=== PATIENT | male | born 1940 | race Caucasian/White ===

== ENCOUNTER 2018-12-25 18:18 | Inpatient (IN) ==
[2018-12-25] MEDS ORDERED: Nitroglycerin 0.4 MG TAB.SUBL SL PRN (18:45)
[2018-12-25] MEDS ORDERED: Aspirin 81 MG TAB.CHEW PO ONE (18:45)
--- NOTE | 2018-12-25 18:45 | Emergency Department Note ---
Disposition Clinical Impression: Facial paresthesia, Arm paresthesia, left Chest pain Qualifiers: Chest pain type: unspecified Qualified Code(s): R07.9 - Chest pain, unspecified Disposition: Admitted As Inpatient Condition: Fair Time of Disposition: 22:30 General Adult HPI - General Chief complaint: ED Neuro Symptoms/Deficit Stated complaint: numbness Time Seen by Provider: 12/25/18 18:29 Source: patient, EMS Mode of arrival: private vehicle Limitations: altered mental status Nursing Notes Reviewed: Yes Vital Signs Reviewed: Yes - History of Present Illness HPI Narrative: Pt was seen at the [facility] today for concerns of left-sided numbness in addition to his existing right-sided facial numbness. Patient had a chest x-ray and a head CT at the [facility], was sent with a CD which will be uploaded into our system. Was also sent with a folder full of information containing the radiological reads. Patient is also complaining of some left-sided chest pain that he says has been there for the last couple of days. He says it started yesterday morning he was hoping it would go away but then it did not go away so he decided to get looked at today. Patient states that it is like a pressure and it is approximately 8 out of 10 in severity. Patient has not taken any of his nitroglycerin in order to help relieve his pain. Patient is only alert and oriented to self, does not know the date, the season, the president, where he is. Patient states that he feels like his numbness is like the last time he had a stroke and was concerned that he may be having a stroke. Pt was recently a patient in this facility and had cardiac workup including nuclear and non-nuclear stress tests, echocardiogram in October, and there was no significant findings. Pain Scale: 5 - Related Data Home Medications Medication Instructions Recorded Confirmed RX: Allopurinol [Zyloprim 100 MG] 100 mg PO DAILY 11/22/18 12/25/18 RX: Aspirin [Lo-Dose Aspirin EC] 81 mg PO DAILY 11/22/18 12/25/18 RX: Baclofen [Lioresal] 10 mg PO BID 11/22/18 12/25/18 RX: Benzonatate [Tessalon] 100 mg PO Q6H PRN 11/22/18 12/25/18 RX: Budesonide/Formoterol 160/4.5 2 puff IH Q12H 11/22/18 12/25/18 [Symbicort 160/4.5] RX: Carbidopa/Levodopa 1 tab PO TID 11/22/18 12/25/18 [Carbidopa-Levodopa 25-100 Tab] RX: Clopidogrel [Plavix] 75 mg PO DAILY 11/22/18 12/25/18 RX: Isosorbide MONOnitrate 30 mg PO DAILY 11/22/18 12/25/18 [Isosorbide Mononitrate ER] RX: Lactulose 10 gm PO BID 11/22/18 12/25/18 RX: Levalbuterol Neb [Xopenex Neb] 0.63 mg IH Q6H PRN 11/22/18 12/25/18 RX: Levalbuterol Tartrate 2 puff IH Q4H PRN 11/22/18 12/25/18 [Levalbuterol Tartrate Hfa] RX: Nitroglycerin [Nitrostat] 0.4 mg SL AD PRN MDD 3 DOSES X5MIN 11/22/18 12/25/18 CALL 911 RX: Pantoprazole Sodium [Protonix] 40 mg PO DAILY 11/22/18 12/25/18 RX: Polyethylene Glycol 3350 17 gm PO BID PRN 11/22/18 12/25/18 [MiraLAX] RX: Pravastatin Sodium [Pravachol] 40 mg PO HS 11/22/18 12/25/18 RX: Primidone [Mysoline] 100 mg PO HS 11/22/18 12/25/18 RX: Propranolol [Inderal] 10 mg PO TID 11/22/18 12/25/18 RX: Sulfamethoxazole/Trimeth DS 1 each PO BID 11/22/18 12/25/18 [Bactrim Ds] RX: Tamsulosin HCl [Flomax] 0.8 mg PO QPM 11/22/18 12/25/18 Guaifenesin [Tussin Honey] PO TID 12/25/18 Pregabalin [Lyrica] 225 mg PO BID 12/25/18 12/25/18 RX: Ipratropium Neb [Atrovent Neb] 2.5 ml IH QID 12/25/18 12/25/18 RX: Theophylline Anhydrous 150 mg PO BID 12/25/18 12/25/18 [Theodur] Allergies Allergy/AdvReac Type Severity Reaction Status Date / Time codeine Allergy Drowsy Verified 03/28/16 11:58 gabapentin Allergy See Verified 12/25/18 18:41 Comments meperidine [From Demerol] Allergy See Verified 11/22/18 14:17 Comments lovastatin AdvReac See Verified 11/22/18 14:17 Comments pramipexole AdvReac See Verified 12/25/18 18:41 Comments simvastatin AdvReac See Verified 11/22/18 14:17 Comments venlafaxine AdvReac See Verified 12/25/18 18:41 Comments Limitations: ROS unobtainable due to patients medical condition Past Medical History - Past Medical History Medical history: Reports: coronary artery disease, CVA, hyperlipidemia, hypertension - Social History Smoking Status: Former smoker Smokeless Tobacco Status: No Alcohol use: Reports: none Drug use: Reports: none Physical Exam General: A&O x 1. No acute distress. Well developed, well nourished. Head: atraumatic, normocephalic. ENT: No conjunctival injection, no scleral icterus. PERRLA. EOMI. Oropharynx non- erythematous. mucous membranes moist. Neuro: Left sided facial numbness worse than right. CN II-XII grossly intact. Bilateral upper extremities strength 5/5, left ower extremity strength 4/5, right lower extremity strength 3/5. Pulm: Lungs CTAB A/P. No wheezes, rales, ronchi. Cardio: RRR no m/r/g. Chest slightly tender to palpation, but does not completely reproduce his symptoms. Abd: Soft, non-distended. Normoactive bowel sounds. Non-tender to palpation. No guarding. Non rigid. Extremities: Radial pulses 2+ laura, laura LE mild edema. Skin: warm, dry, intact. No rashes. Psych: Appropriate mood and affect. Answers questions appropriately. Cooperative with exam. - General Limitations: no limitations General appearance: alert, in no apparent distress Course Course Narrative: Pt has come with CD containing CXR and Head CT which will be loaded into the system. Will order troponin to rule out ACS, but suspect he will need to be admitted for further neurologic workup. Vital Signs Temperature 98.5 F 12/25/18 18:28 Pulse Rate 71 12/25/18 18:28 Respiratory Rate 16 04/03/19 18:28 Blood Pressure 153/84 12/25/18 18:28 O2 Sat by Pulse Oximetry 100 12/25/18 18:28 Temperature 98.5 F 12/25/18 18:28 Pulse Rate 71 12/25/18 18:28 Respiratory Rate 16 12/25/18 18:28 Blood Pressure 153/84 12/25/18 18:28 O2 Sat by Pulse Oximetry 100 12/25/18 18:28 Oxygen Delivery Oxygen Delivery Nasal Cannula Medical Decision Making - MDM Narrative Medical decision making narrative: Pt continues to have neurologic symptoms with no [id number] CT evidence of hemorrhage. Will need further neurologic workup. Spoke with Dr. Betancur, hospitalist, who agrees to accept the patient. Pt was given an opportunity to ask questions at bedside and did not have any questions. Pt verbalized understanding and agreement with admission. Pt remained stable while in the department. - Medical Records Medical records reviewed: Yes I reviewed the patient's medical records. - Lab Data Lab results reviewed: Yes I reviewed the patient's lab results. Result diagrams: 12/26/18 06:01 12/26/18 06:01 Lab Results 12/25/18 12/25/18 12/25/18 Range/Units 19:33 19:33 19:33 WBC 7.4 (4.3-11.1) K/mcL RBC 3.88 L (4.19-5.50) M/mcL Hgb 11.4 L (12.9-16.9) g/dL Hct 35.6 L (37.5-50.1) % MCV 91.8 (83.0-100.0) fL MCH 29.4 (28.0-33.3) pg MCHC 32.0 (31.6-35.5) g/dL RDW 14.0 (11.5-14.5) % Plt Count 167 (140-400) K/mcL MPV 10.9 (9.4-12.4) fL Immature Gran % 0.3 (0-4) % Seg Neutrophils % 56.0 % Lymphocytes % 31.8 % Monocytes % 9.3 % Eosinophils % 1.9 % Basophils % 0.7 % Neutrophils # 4.1 (1.6-8.9) K/mcL Lymphocytes # 2.4 (0.6-4.6) K/mcL Monocytes # 0.7 (0.0-1.3) K/mcL Eosinophils # 0.1 (0.0-0.6) K/mcL Basophils # 0.1 (0.0-0.2) K/mcL PT 11.6 (9.4-12.1) Seconds INR 1.0 APTT 30.4 (26.0-36.0) Seconds Sodium 140 (136-145) mEq/L Potassium 4.0 (3.5-5.1) mEq/L Chloride 105 (98-107) mEq/L Carbon Dioxide 29 (23-29) mEq/L BUN 23 (8-23) mg/dL Creatinine 0.96 (0.70-1.30) mg/dL Est GFR ( Amer) > 60 (> 60) Est GFR (Non-Af Amer) > 60 (> 60) BUN/Creatinine Ratio 24 (6-26) Glucose 85 (70-105) mg/dL Calculated Osmolality 293 (280-300) Calcium 9.0 (8.6-10.3) mg/dL Troponin I < 0.03 (< 0.04) ng/mL - Radiology Data Radiology results reviewed: Yes I reviewed the patient's radiology results. Radiologic results contained in [facility] - EKG Data EKG #1 EKG attestation: Yes I reviewed and interpreted this EKG. EKG results narrative: HR 71, rhythm sinus, axis normal. MD 158, QRS 95, QTc 441. No ST segment elevation or depression. Previous EKG shows sinus arrhythmia. Our initial EKG showed atrial flutter, but techs were able to hold patient's arms and legs and obtain an EKG which did not demonstrate flutter. Attestation Statement - Attestation Attestation: I examined this patient and my medical decision-making was reviewed with the Resident Physician. I agree with the documented findings, disposition and treatment plan as described except to the extent set forth below.
[2018-12-25 19:59] LABS: Prothrombin Time 11.6 Seconds (9.4-12.1)
[2018-12-25 20:01] LABS: Activated Partial Thrombo Time 30.4 Seconds (26.0-36.0)
[2018-12-25 20:09] LABS: BUN/Creatinine Ratio 24 (6-26); Blood Urea Nitrogen 23 mg/dL (8-23); Carbon Dioxide 29 mEq/L (23-29); Chloride 105 mEq/L (98-107); Glucose 85 mg/dL (70-105); Osmolality,Calculated 293 (280-300); Sodium 140 mEq/L (136-145); eGFR For Non-African Americans > 60 (> 60)
[2018-12-25 20:10] LABS: Troponin I < 0.03 ng/mL (< 0.04)
[2018-12-25 20:26] LABS: Basophils # 0.1 K/mcL (0.0-0.2); Basophils % 0.7 %; Eosinophils # 0.1 K/mcL (0.0-0.6); Eosinophils % 1.9 %; Hematocrit 35.6 % (37.5-50.1); Hemoglobin 11.4 g/dL (12.9-16.9); Immature Granulocytes % 0.3 % (0-4); Lymphocytes # 2.4 K/mcL (0.6-4.6); Lymphocytes % 31.8 %; Mean Corpuscular Hemoglobin 29.4 pg (28.0-33.3); Mean Corpuscular Volume 91.8 fL (83.0-100.0); Mean Platelet Volume 10.9 fL (9.4-12.4); Monocytes # 0.7 K/mcL (0.0-1.3); Monocytes % 9.3 %; Neutrophils # 4.1 K/mcL (1.6-8.9); Platelet Count 167 K/mcL (140-400); Red Blood Count 3.88 M/mcL (4.19-5.50)
--- NOTE | 2018-12-25 21:16 | Emergency Department Note ---
Disposition Clinical Impression: Chest pain, Facial paresthesia, Arm paresthesia, left Disposition: Still a Patient Condition: Fair Forms: ED Satisfaction Letter General Adult HPI - General Chief complaint: ED Neuro Symptoms/Deficit Stated complaint: numbness Time Seen by Provider: 12/25/18 18:29 Source: patient, EMS Mode of arrival: private vehicle Limitations: no limitations - History of Present Illness Pain Scale: 5 - Related Data Home Medications Medication Instructions Recorded Confirmed Allopurinol [Zyloprim 100 MG] 100 mg PO DAILY 11/22/18 11/22/18 Aspirin [Lo-Dose Aspirin EC] 81 mg PO DAILY 11/22/18 11/22/18 Baclofen [Lioresal] 10 mg PO BID 11/22/18 11/22/18 Benzonatate [Tessalon] 100 mg PO Q6H PRN 11/22/18 11/22/18 Budesonide/Formoterol 160/4.5 2 puff IH Q12H 11/22/18 11/22/18 [Symbicort 160/4.5] Carbidopa/Levodopa 1 tab PO TID 11/22/18 11/22/18 [Carbidopa-Levodopa 25-100 Tab] Clopidogrel [Plavix] 75 mg PO DAILY 11/22/18 11/22/18 Isosorbide MONOnitrate [Isosorbide 45 mg PO DAILY 11/22/18 11/22/18 Mononitrate ER] Lactulose 10 gm PO BID 11/22/18 11/22/18 Levalbuterol Neb [Xopenex Neb] 0.63 mg IH Q6H PRN 11/22/18 11/22/18 Levalbuterol Tartrate 2 puff IH Q4H PRN 11/22/18 11/22/18 [Levalbuterol Tartrate Hfa] Nitroglycerin [Nitrostat] 0.4 mg SL AD PRN MDD 3 DOSES X5MIN 11/22/18 11/22/18 CALL 911 Pantoprazole Sodium [Protonix] 40 mg PO DAILY 11/22/18 11/22/18 Polyethylene Glycol 3350 [MiraLAX] 17 gm PO BID PRN 11/22/18 11/22/18 Pravastatin Sodium [Pravachol] 40 mg PO HS 11/22/18 11/22/18 Pregabalin [Lyrica] 150 mg PO BID 11/22/18 11/22/18 Primidone [Mysoline] 100 mg PO HS 11/22/18 11/22/18 Propranolol [Inderal] 10 mg PO TID 11/22/18 11/22/18 Sulfamethoxazole/Trimeth DS 1 each PO BID 11/22/18 11/22/18 [Bactrim Ds] Tamsulosin HCl [Flomax] 0.8 mg PO QPM 11/22/18 11/22/18 Allergies Allergy/AdvReac Type Severity Reaction Status Date / Time codeine Allergy Drowsy Verified 03/28/16 11:58 gabapentin Allergy See Verified 12/25/18 18:41 Comments meperidine [From Demerol] Allergy See Verified 11/22/18 14:17 Comments lovastatin AdvReac See Verified 11/22/18 14:17 Comments pramipexole AdvReac See Verified 12/25/18 18:41 Comments simvastatin AdvReac See Verified 11/22/18 14:17 Comments venlafaxine AdvReac See Verified 12/25/18 18:41 Comments Past Medical History - Past Medical History Medical history: Reports: coronary artery disease, CVA, hyperlipidemia, hypertension - Social History Smoking Status: Former smoker Smokeless Tobacco Status: No Alcohol use: Reports: none Drug use: Reports: none Physical Exam - General Limitations: no limitations General appearance: alert, in no apparent distress Course Vital Signs Temperature 98.5 F 12/25/18 18:28 Pulse Rate 71 12/25/18 18:28 Respiratory Rate 16 12/25/18 18:28 Blood Pressure 153/84 12/25/18 18:28 O2 Sat by Pulse Oximetry 100 12/25/18 18:28 Temperature 98.5 F 12/25/18 18:28 Pulse Rate 71 12/25/18 18:28 Respiratory Rate 16 12/25/18 18:28 Blood Pressure 153/84 12/25/18 18:28 O2 Sat by Pulse Oximetry 100 12/25/18 18:28 Oxygen Delivery Oxygen Delivery Nasal Cannula Medical Decision Making - Lab Data Result diagrams: 12/25/18 19:33 12/25/18 19:33 Lab Results 12/25/18 12/25/18 12/25/18 Range/Units 19:33 19:33 19:33 WBC 7.4 (4.3-11.1) K/mcL RBC 3.88 L (4.19-5.50) M/mcL Hgb 11.4 L (12.9-16.9) g/dL Hct 35.6 L (37.5-50.1) % MCV 91.8 (83.0-100.0) fL MCH 29.4 (28.0-33.3) pg MCHC 32.0 (31.6-35.5) g/dL RDW 14.0 (11.5-14.5) % Plt Count 167 (140-400) K/mcL MPV 10.9 (9.4-12.4) fL Immature Gran % 0.3 (0-4) % Seg Neutrophils % 56.0 % Lymphocytes % 31.8 % Monocytes % 9.3 % Eosinophils % 1.9 % Basophils % 0.7 % Neutrophils # 4.1 (1.6-8.9) K/mcL Lymphocytes # 2.4 (0.6-4.6) K/mcL Monocytes # 0.7 (0.0-1.3) K/mcL Eosinophils # 0.1 (0.0-0.6) K/mcL Basophils # 0.1 (0.0-0.2) K/mcL PT 11.6 (9.4-12.1) Seconds INR 1.0 APTT 30.4 (26.0-36.0) Seconds Sodium 140 (136-145) mEq/L Potassium 4.0 (3.5-5.1) mEq/L Chloride 105 (98-107) mEq/L Carbon Dioxide 29 (23-29) mEq/L BUN 23 (8-23) mg/dL Creatinine 0.96 (0.70-1.30) mg/dL Est GFR ( Amer) > 60 (> 60) Est GFR (Non-Af Amer) > 60 (> 60) BUN/Creatinine Ratio 24 (6-26) Glucose 85 (70-105) mg/dL Calculated Osmolality 293 (280-300) Calcium 9.0 (8.6-10.3) mg/dL Troponin I < 0.03 (< 0.04) ng/mL Attestation Statement - Attestation Attestation: Patient presents to emergency department with chief complaint of left-sided facial numbness, as well as some left-sided chest pain, he states the chest pain reminds always had problems with his heart, he states the left-sided facial numbness is a concern because he had similar symptoms with a prior stroke. [facility] and a chest x-ray and EKG and sent him to the ER here. Patient states he had a little bit of left arm paresthesia but no actual weakness. On physical exam is in no acute distress, cranial nerves appear grossly intact no obvious facial droop or obvious focal neurologic findings. Basic laboratory studies were within acceptable limits. [facility] CT [facility] from [facility], was reviewed, which showed no acute findings as interpreted by radiology. [facility] report also reviewed showed no acute findings images were uploaded from the CDs provided into our system. Initial EKG appeared to potentially be atrial flutter but rate controlled, however the patient has Parkinson's disease, and has a tremor, when we are able to hold his arms still a repeat EKG reveals no evidence of atrial flutter, and evidence for normal sinus rhythm, no other significant ischemia. Patient did have a stress test a month ago which showed no evidence of abnormality, at this facility, he however presents with both chest discomfort, as well as some symptoms concerning for potential TIA with a history of prior [facility], no recent stroke workup, he will be admitted to the hospital for further evaluation and management.
[2018-12-25] MEDS ORDERED: Naloxone 0.4 MG/ML INJ IVP PRN (23:57)
[2018-12-26] MEDS ORDERED: Levalbuterol Neb 0.63 MG/3 ML IH PRN (00:04)
--- NOTE | 2018-12-26 01:21 | Internal Med History&Physical ---
Date of Encounter: 12/25/18 Time of Encounter: 22:50 Internal Medicine - H&P: HPI Chief complaint: left sided weakness Admitted From: Emergency Dept Plans for Post Hospital Care: Home History of present illness: Mr. Navarrete is a 78 year old male who presents to the ER in transfer from the [facility] urgent care. He presented there earlier with complaints of left-sided weakness and paresthesias, which started over 24 hours prior to presentation. He was hopeful that his symptoms would go away. However, since they persisted beyond 24 hours, he went to the urgent care at the [facility] for further workup and care. He had routine labs and imaging performed there and then he was sent to the ER to [place] for further workup and care. CT scan was not repeated here but was reportedly negative at the [facility]. Routine labs were checked and the patient was admitted to hospitalist service for further workup and care. Upon my assessment of the patient, patient is resting in bed comfortably. He denies any complaints at this time, but he does confirm residual left-sided weakness, which is new. 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 He confirms history of old stroke but with no residual deficits. The left side weakness is new and started roughly 1 1/2 days ago. He suffers from Parkinson's disease, but he states he is able to ambulate with minimal difficulty using a cane and/or walker. He denies any dysphasia, dysarthria, numbness, or paralysis. He does complain of left-sided weakness of his arm and leg with some paresthesias. Symptoms have improved somewhat since onset, but they persist. Past Med Surg Social Fam HX - Past Medical History Attestation: Yes The following information was validated with the patient. Source: patient, old records reviewed Medical history: coronary artery disease, CVA, hyperlipidemia, hypertension Psychiatric history: no psych history - Past Surgical History Surgical History: angioplasty/stent, orthopedic, other Additional surgical history: knee, kidney, heart stent x3 - Social History Smoking Status: Former smoker Smokeless Tobacco Status: No Alcohol use: none Drug use: none Current living situation: Home, With Family Activity Level: Independent ambulation, Uses cane/walker Recent Out of Country Travel Within the Last 8 Weeks: No - Family History Father Hx Family Cardiac Disorders: Yes Mother Hx Family Cancer: Yes Internal Medicine - H&P: Meds Allopurinol [Zyloprim 100 MG] 100 mg PO DAILY 11/22/18 [History] Aspirin [Lo-Dose Aspirin EC] 81 mg PO DAILY 11/22/18 [History] Baclofen [Lioresal] 10 mg PO BID 11/22/18 [History] Benzonatate [Tessalon] 100 mg PO Q6H PRN 11/22/18 [History] Budesonide/Formoterol 160/4.5 [Symbicort 160/4.5] 2 puff IH Q12H 11/22/18 [History] Carbidopa/Levodopa [Carbidopa-Levodopa 25-100 Tab] 1 tab PO TID 11/22/18 [History] Clopidogrel [Plavix] 75 mg PO DAILY 11/22/18 [History] Isosorbide MONOnitrate [Isosorbide Mononitrate ER] 30 mg PO DAILY 11/22/18 [History] Lactulose 10 gm PO BID 11/22/18 [History] Levalbuterol Neb [Xopenex Neb] 0.63 mg IH Q6H PRN 11/22/18 [History] Levalbuterol Tartrate [Levalbuterol Tartrate Hfa] 2 puff IH Q4H PRN 11/22/18 [History] Nitroglycerin [Nitrostat] 0.4 mg SL AD PRN MDD 3 DOSES X5MIN CALL 911 11/22/18 [History] Pantoprazole Sodium [Protonix] 40 mg PO DAILY 11/22/18 [History] Polyethylene Glycol 3350 [MiraLAX] 17 gm PO BID PRN 11/22/18 [History] Pravastatin Sodium [Pravachol] 40 mg PO HS 11/22/18 [History] Primidone [Mysoline] 100 mg PO HS 11/22/18 [History] Propranolol [Inderal] 10 mg PO TID 11/22/18 [History] Sulfamethoxazole/Trimeth DS [Bactrim Ds] 1 each PO BID 11/22/18 [History] Tamsulosin HCl [Flomax] 0.8 mg PO QPM 11/22/18 [History] Guaifenesin [Tussin Honey] PO TID 12/25/18 [History] Ipratropium Neb [Atrovent Neb] 2.5 ml IH QID 12/25/18 [History] Pregabalin [Lyrica] 225 mg PO BID 12/25/18 [History] Theophylline Anhydrous [Theodur] 150 mg PO BID 12/25/18 [History] Allergy/AdvReac Type Severity Reaction Status Date / Time codeine Allergy Drowsy Verified 03/28/16 11:58 gabapentin Allergy See Verified 12/25/18 18:41 Comments meperidine [From Demerol] Allergy See Verified 11/22/18 14:17 Comments lovastatin AdvReac See Verified 11/22/18 14:17 Comments pramipexole AdvReac See Verified 12/25/18 18:41 Comments simvastatin AdvReac See Verified 11/22/18 14:17 Comments venlafaxine AdvReac See Verified 12/25/18 18:41 Comments - Constitutional Constitutional: no chills, no fever(s), no night sweats - EENT Eyes: no blurry vision, no change in vision Ears: no ear pain, no tinnitus Nose, mouth and throat: no nasal congestion, no sinus pressure, no sore throat - Cardiovascular Cardiovascular ROS IM: no chest pain, no dyspnea, no dyspnea on exertion, no orthopnea, no syncope - Respiratory Respiratory: no cough, no hemoptysis, no chest congestion - Gastrointestinal Gastrointestinal: no abdominal pain, no diarrhea, no hematemesis, no hematochezia, no melena, no nausea, no vomiting - Genitourinary Genitourinary ROS male: no difficulty urinating, no dysuria, no hematuria - Musculoskeletal Musculoskeletal ROS IM: no arthralgias, no back pain - Integumentary Integumentary IM: no rash, no jaundice - Neurological Neurological ROS: focal weakness (left side), paresthesias, no disequilibrium, no dizziness, no frequent falls, no headache(s), no numbness - Psychiatric Psychiatric: no anxiety, no depression - Endocrine Endocrine IM: no cold intolerance, no heat intolerance, no polydipsia, no polyuria - Allergic/Immunologic Allergic/Immunologic: no wheezing, no GI upset with certain foods - Constitutional Vitals: Temp Pulse Resp BP Pulse Ox 98 F 69 16 168/91 99 12/26/18 00:53 12/26/18 00:53 12/26/18 00:53 12/26/18 00:53 12/26/18 00:53 General appearance: Present: cooperative, A&O X 3, pleasant, no acute distress, answers questions appropriately Exam: see below - Head Head exam: Present: atraumatic, normal inspection - Eye Eye exam: Present: EOMI, PERRL. Absent: scleral icterus Pupils: Present: normal accommodation - ENT ENT exam: Present: mucous membranes dry, normal exam, normal oropharynx - Neck Neck exam general surgery: Present: full ROM, supple, trachea midline. Absent: tenderness, nuchal rigidity, thyromegaly - Respiratory Respiratory exam: Present: CTAB. Absent: chest wall tenderness, rales, respiratory distress, rhonchi, wheezes - Cardiovascular Cardiovascular exam: Present: RRR, +S1, +S2. Absent: diastolic murmur, systolic murmur - GI/Abdominal GI/Abdominal exam: Present: normal bowel sounds, soft. Absent: guarding, hepatomegaly, mass, rebound, splenomegaly, tenderness - Extremities Exam Extremities exam: Present: full ROM, normal capillary refill, warm, radial pulses palpable and symmetrical. Absent: calf tenderness, joint swelling, pedal edema, tenderness - Back Exam Back exam: Present: normal inspection. Absent: CVA tenderness (L), CVA tenderness (R) - Neurological Exam Neurological exam: Present: alert, CN II-XII intact, motor sensory deficit (left arm and leg motor weakness w 3-4/5 motor strength; + parasthesias; no numbness), oriented X3, strengths equal and symetr throughout. Absent: no focal deficits - Psychiatric Psychiatric exam: Present: flat affect, normal mood - Skin Skin exam: Present: dry, intact, warm Internal Med - H&P Results - Labs CBC & Chem 7: 12/25/18 19:33 12/25/18 19:33 Labs: Short CBC 12/25/18 Range/Units 19:33 WBC 7.4 (4.3-11.1) K/mcL Hgb 11.4 L (12.9-16.9) g/dL Hct 35.6 L (37.5-50.1) % Plt Count 167 (140-400) K/mcL Neutrophils # 4.1 (1.6-8.9) K/mcL BMP 12/25/18 19:33 Sodium 140 Potassium 4.0 Chloride 105 Carbon Dioxide 29 BUN 23 Creatinine 0.96 Glucose 85 Calcium 9.0 Cardiac Enzymes 12/25/18 Range/Units 19:33 Troponin I < 0.03 (< 0.04) ng/mL - EKG Data -: EKG Interpreted by Myself - EKG Data Prior EKG available for review: no - Impressions NSR; no acute changes ([facility] E[facility]; none performed in our ER) - Assessment and Plan (1) Left-sided weakness Current Visit: Yes Status: Acute Assessment and plan: 1. Will proceed with TIA/stroke work-up. 2. Serial neurochecks. 3. Will order MRI brain, ECHO, Carotid Dopplers. 4. Consult PT/OT if necessary after above work-up. 5. Consult Neurology for assistance in evaluating in the setting of Parkinson's disease. (2) CAD (coronary artery disease) Current Visit: Yes Status: Chronic Assessment and plan: 1. No active chest pains or cardiac concerns. 2. Continue home medications as appropriate once verified. 3. Will monitor on telemetry and proceed with ECHO as above. Qualifiers: Coronary Disease-Associated Artery/Lesion type: [place] artery [place] vs. t ransplanted heart: [place] heart Associated angina: angina presence unspecified Qualified Code(s): I25.10 - Atherosclerotic heart disease of [place] coronary artery without angina pectoris (3) Parkinson disease Current Visit: Yes Status: Chronic Assessment and plan: 1. Continue home meds as appropriate. 2. Neurology consult as above. 3. PT/OT consults prior to discharge. (4) DVT prophylaxis Current Visit: Yes Status: Acute Assessment and plan: 1. Heparin SQ.
[2018-12-26] MEDS: Ipratropium Neb 0.5 MG NEBULIZER IH SCH ×4 (04:45→22:55)
[2018-12-26 05:26] LABS: Bilirubin,Urine Negative (Negative); Blood,Urine Negative (Negative); Clarity,Urine Clear (Clear); Color,Urine Yellow (Yellow); Glucose,Urine (UA) Normal (Normal); Ketones,Urine Negative (Negative); Leukocyte Esterase,Urine Negative (Negative); Nitrite,Urine Negative (Negative); Protein,Urine Negative (Neg-Trace); Specific Gravity,Urine 1.022 (1.010-1.025); Urobilinogen,Urine Normal (Normal)
[2018-12-26] MEDS: *HR* Heparin 5,000 UNIT/ML VIAL SQ SCH ×3 (05:35→22:06)
[2018-12-26 06:21] LABS: Basophils % 0.5 %; Eosinophils # 0.1 K/mcL (0.0-0.6); Hematocrit 37.2 % (37.5-50.1); Hemoglobin 11.9 g/dL (12.9-16.9); Immature Granulocytes % 0.3 % (0-4); Lymphocytes # 2.2 K/mcL (0.6-4.6); Lymphocytes % 37.4 %; Mean Corpuscular Hemoglobin 29.3 pg (28.0-33.3); Mean Corpuscular Volume 91.6 fL (83.0-100.0); Mean Platelet Volume 10.9 fL (9.4-12.4); Monocytes # 0.6 K/mcL (0.0-1.3); Monocytes % 9.2 %; Platelet Count 155 K/mcL (140-400); Red Blood Count 4.06 M/mcL (4.19-5.50); Segmented Neutrophils % 50.6 %
[2018-12-26 06:46] LABS: Alanine Aminotransferase 10 Units/L (7-52); Albumin 3.7 g/dL (3.5-5.7); Albumin/Globulin Ratio 1.4 (1.1-2.2); Alkaline Phosphatase 60 Units/L (34-104); Aspartate Amino Transferase 13 Units/L (13-39); BUN/Creatinine Ratio 22 (6-26); Bilirubin,Total 0.6 mg/dL (0.3-1.0); Blood Urea Nitrogen 20 mg/dL (8-23); Calcium 8.9 mg/dL (8.6-10.3); Carbon Dioxide 27 mEq/L (23-29); Chloride 105 mEq/L (98-107); Chol/HDL Ratio 3.4 (0-4.9); Cholesterol 112 mg/dL (< 200); Globulin 2.6 g/dL (2.4-3.5); Glucose 97 mg/dL (70-105); HDL Cholesterol 33 mg/dL (40-59); LDL Cholesterol,Calculated 58 mg/dL (0-99); Magnesium 1.6 mg/dL (1.6-2.6); Osmolality,Calculated 295 (280-300); Sodium 141 mEq/L (136-145); Total Protein 6.3 g/dL (6.4-8.9); Triglycerides 104 mg/dL (< 150); eGFR For Non-African Americans > 60 (> 60)
[2018-12-26] MEDS: Carbidopa/Levodopa 25/100 TABLET PO SCH ×3 (08:01→22:05)
[2018-12-26] MEDS: Isosorbide MONOnitrate (24 HR) 30 MG TAB.ER.24H PO SCH (08:01)
[2018-12-26] MEDS: Baclofen 10 MG TABLET PO SCH ×2 (08:01→22:05)
[2018-12-26] MEDS: Pregabalin 75 MG CAPSULE PO SCH ×2 (08:02→22:05)
[2018-12-26] MEDS: Aspirin Enteric Coated 81 MG Tablet PO SCH (08:02)
--- NOTE | 2018-12-26 08:27 | Neurology - Consult Note ---
Addendum entered and electronically signed by Moriah Tang MD 12/26/18 16:04: I did a [id number] evaluation with the patient. Case discussed imaging studies reviewed together with the physician cosmetic sales assistant Andrew Goddard and I agree with his history taking, physical examination, assessment and plan outlined below. In summary, this is a 78-year-old the man with past medical history significant for coronary artery disease, history of previous lacunar infarct, hypertension, hyperlipidemia and possible Parkinson's disease who developed acute onset of chest discomfort and increasing weakness. Patient developed a slight cough as well while in the hospital. Patient does have history of the left-sided weakness as a result of previous lacunar infarct per history. Patient has been taking a combination of aspirin and Plavix for secondary stroke prevention. At the time of this interview, the patient has no focal neurological deficits, except rhythmic, mixed tremors involving both upper and lower extremities. MRI of the brain showed no acute infarct. There is a report of likely a tiny focal hygroma or chronic subdural hematoma located at the left frontal lobe likely asymptomatic. Stroke/TIA workup is essentially negative. At the time of this interview, the patient does have rather significant breathing difficulty on exertion, dizziness with balance difficulty and generalized weakness without any focal neurological findings. No nystagmus noted. We will defer medical team for evaluation and treatment of dyspnea on exertion and weakness. This does not appear to be significant to a primary neurological disorder. We will sign off at this time please continue medical supportive care Original Note: Date of Encounter: 12/26/18 Time of Encounter: 08:22 Assessment and Plan (1) Left-sided weakness Current Visit: Yes Status: Acute Neuro c/s with concern of TIA/CVA Presents with left-sided weakness and paresthesias which began approximately 24- 36 hours prior to arrival. History of remote right thalamic CVA. Risk factors include obesity, age, CVA history, HTN, HLD. ABCD 2 score-6 [facility] [address] [facility] shows [facility] abnormality; confirms remote rt thalamic infarct EKG shows NSR without ST-T wave changes concerning for ischemia Clinically, the patient reports that the left-sided weakness and paresthesias are improving but are still present. On exam he appears to have some mild weakness of the left arm and leg when compared to the right and he displays weakness with lt foot dorsiflexion however overall strength is 4/5 in bilateral upper and bilateral lower extremities. Otherwise there are no new focal or lateralizing deficits. He has a h/o Parkinson's and displays Parkinsonian featu res severe including b/l resting tremor Rt>Lt, left arm rigidity, bradykinesia, shuffling gait and stooped posture. Given history and s/sx presentation there is concern for TIA/CVA. Proceed with r/o as follows below. Thank you for consulting [facility]. PLAN: MRI brain-pending Echocardiogram-pending Carotid duplex-pending Recommend PT/OT consultation Continue aspirin, statin and Plavix Continue with frequent neuro assessments per protocol Continue with NIH assessment protocol History of Present Illness Chief complaint: left-sided paresthesias and weakness HPI: Mr. Navarrete is a 78 year old male with a PMH of CAD, CVA, HLD, HTN and Parkinson's. He follows with [facility] for Parkinson's. He presented from [facility] to [facility] after experiencing blurred vision, lightheadedness, left-sided weakness and paresthesias for approximately 24-36 hours prior to arrival. given ongoing symptoms and history of prior stroke and was sent to [facility] further evaluation of TIA versus CVA. CT imaging of the head obtained at the [facility] and was found to be negative for any acute abnormality. It did however identify a remote right thalamic infarct which she confirms and reports no residual deficits. At this time his symptoms are improving but are still ongoing. He denies any headaches, dysphagia, dysarthria, speech/language dysfunction, gait changes. further, he denies chest pain, palpitations or a fast heart rate. He does note that he has felt "under the weather" for the last few days reporting cough, dyspnea with prolonged activity and a decreased activity tolerance. Otherwise, his CBC and chemistry appear unremarkable and the urinalysis is negative for an acute infection. Given her risk factors and ongoing symptoms neurology we will continue with rule out TIA/CVA Past Med Surg Social Fam HX - Past Medical History Medical history: coronary artery disease, CVA, hyperlipidemia, hypertension Psychiatric history: no psych history - Past Surgical History Surgical History: angioplasty/stent, orthopedic, other Additional surgical history: knee, kidney, heart stent x3 - Social History Smoking Status: Former smoker Smokeless Tobacco Status: No Alcohol use: none Drug use: none - Family History Father Hx Family Cardiac Disorders: Yes Mother Hx Family Cancer: Yes Medications and Allergies Allopurinol [Zyloprim 100 MG] 100 mg PO DAILY 11/22/18 [History] Aspirin [Lo-Dose Aspirin EC] 81 mg PO DAILY 11/22/18 [History] Baclofen [Lioresal] 10 mg PO BID 11/22/18 [History] Benzonatate [Tessalon] 100 mg PO Q6H PRN 11/22/18 [History] Budesonide/Formoterol 160/4.5 [Symbicort 160/4.5] 2 puff IH Q12H 11/22/18 [History] Carbidopa/Levodopa [Carbidopa-Levodopa 25-100 Tab] 1 tab PO TID 11/22/18 [History] Clopidogrel [Plavix] 75 mg PO DAILY 11/22/18 [History] Isosorbide MONOnitrate [Isosorbide Mononitrate ER] 30 mg PO DAILY 11/22/18 [History] Lactulose 10 gm PO BID 11/22/18 [History] Levalbuterol Neb [Xopenex Neb] 0.63 mg IH Q6H PRN 11/22/18 [History] Levalbuterol Tartrate [Levalbuterol Tartrate Hfa] 2 puff IH Q4H PRN 11/22/18 [History] Nitroglycerin [Nitrostat] 0.4 mg SL AD PRN MDD 3 DOSES X5MIN CALL 911 11/22/18 [History] Pantoprazole Sodium [Protonix] 40 mg PO DAILY 11/22/18 [History] Polyethylene Glycol 3350 [MiraLAX] 17 gm PO BID PRN 11/22/18 [History] Pravastatin Sodium [Pravachol] 40 mg PO HS 11/22/18 [History] Primidone [Mysoline] 100 mg PO HS 11/22/18 [History] Propranolol [Inderal] 10 mg PO TID 11/22/18 [History] Sulfamethoxazole/Trimeth DS [Bactrim Ds] 1 each PO BID 11/22/18 [History] Tamsulosin HCl [Flomax] 0.8 mg PO QPM 11/22/18 [History] Guaifenesin [Tussin Honey] PO TID 12/25/18 [History] Ipratropium Neb [Atrovent Neb] 2.5 ml IH QID 12/25/18 [History] Pregabalin [Lyrica] 225 mg PO BID 12/25/18 [History] Theophylline Anhydrous [Theodur] 150 mg PO BID 12/25/18 [History] Allergy/AdvReac Type Severity Reaction Status Date / Time codeine Allergy Drowsy Verified 03/28/16 11:58 gabapentin Allergy See Verified 12/25/18 18:41 Comments meperidine [From Demerol] Allergy See Verified 11/22/18 14:17 Comments lovastatin AdvReac See Verified 11/22/18 14:17 Comments pramipexole AdvReac See Verified 12/25/18 18:41 Comments simvastatin AdvReac See Verified 11/22/18 14:17 Comments venlafaxine AdvReac See Verified 12/25/18 18:41 Comments All Systems: The remainder of the systems were reviewed and are negative Review of Systems: REVIEW OF SYSTEMS GENERAL: Negative for any nausea, vomiting, fevers,weight loss or night sweats POSITIVE-chills NEUROLOGIC: Negative for any facial asymmetry, dysphagia, dysarthria, language dysfunction, hemiparesis, vertigo,attention difficulties, POSITIVE-blurred vision which began approximately 24-36 hours ago, left sided paresthesias and left sided weakness. He is also reporting lightheadedness. CHRONIC-he is reporting a chronic bilateral hand resting tremors right greater than left, shuffling gait, difficulty rising from a seated to standing position, and clumsiness and difficulty with fine motor tasks HEENT: Negative for any head trauma, neck trauma, neck stiffness, photophobia, phonophobia tinnitus CARDIAC: Negative for any chest pain, palpitations, tachycardia, peripheral edema PULMONARY: positive for dyspnea with exertion and cough GASTROINTESTINAL: Negative for any abdominal pain, nausea, vomiting, or diarrhea GENITOURINARY: Negative for any dysuria, hematuria, incontinence. ENDOCRINE: Thyroid trouble, heat/cold intolerance, excessive sweating, thirst, hunger MUSCULOSKELETAL:negative- Joint pain, stiffness, or swelling POSITIVE-reporting loss of strength to left arm and leg, decreased activity tolerance Physical Examination - Vital Signs Vital Signs: Initial Vital Signs Temp Pulse Resp BP Pulse Ox 98.5 F 71 16 153/84 100 12/25/18 18:28 12/25/18 18:28 12/25/18 18:28 12/25/18 18:28 12/25/18 18:28 - Exam Exam: Examination: General Examination: *CONSTITUTIONAL: Alert and oriented x3, no acute distress *GENERAL APPEARANCE OF PATIENT obese, generally ill appearing elderly male *EYES: pupils equal, round, reactive to light and accommodation, conjunctiva clear *CARDIOVASCULAR RRR, S1, S2, no peripheral edema, distal temperature normal, +1 radial and dorsalis pedis pulses Musculoskeletal: *GAIT AND STATION shuffling gait with stooped posture. There is no spasticity noted. 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 *PSYCH: calm and cooperative, does not appear anxious Neurological: *ORIENTATION to person, situation, time and place *RECURRENT AND REMOTE MEMORY intact *ATTENTION AND CONCENTRATION are normal *LANGUAGE FUNCTION no significant aphasia or dysarthia was noted. *FUND OF KNOWLEDGE aware of current events, past history, vocabulary *MENTAL attention span and concentration normal. *CN II optic fundi were normal, no papilledema noted. *CN III,IV, PERRLA extraocular eye movements were full, no nystagmus and no ptosis noted. *CN V shows normal sensation and jaw opens symmetrically. *CN VII shows normal facial movement symmetrically, upper and lower bilaterally. *CN VIII shows no significant hearing loss on exam *CN IX,,X palate elevated symmetrically *CN XI normal strength in the sternocleidomastoid muscles, asymmetrical shoulder shrugging with weakness of the left shoulder compared to right. *CN XII tongue protruded in the midline, with normal strength and movement. *SENSORY EXAMINATION light touch intact *REFLEXES: deep tendon reflexes were grade 2/4 diffusely in B/L bicep and tricep, DTR patellar are 3/4 b/l and plantar 3/4; h/o spine sx. no pathological reflexes were noted. *CEREBELLAR TESTING normal finger to nose, heel/knee/polk *PAIN LEVEL 0 Results - Laboratory Findings CBC and BMP: 12/26/18 06:01 12/26/18 06:01 Abnormal lab findings: Abnormal lab results RBC 4.06 M/mcL (4.19-5.50) L 12/26/18 06:01 Hgb 11.9 g/dL (12.9-16.9) L 12/26/18 06:01 Hct 37.2 % (37.5-50.1) L 12/26/18 06:01 Serum Total Protein 6.3 g/dL (6.4-8.9) L 12/26/18 06:01 HDL Cholesterol 33 mg/dL (40-59) L 12/26/18 06:01 Consult Discharge Plan - Plan [facility] Care Provider[facility] -
[2018-12-26 09:22] LABS: Estimated Average Glucose 131 mg/dl; Hemoglobin A1C 6.2 %
--- NOTE | 2018-12-26 10:10 | Internal Med Progress Note ---
Hospitalist Progress Note - Encounter Date of Encounter: 12/26/18 Time of Encounter: 09:30 - Subjective Interval History: Mr. Navarrete is a 78 year old male coronary artery disease, CVA, hyperlipidemia, hypertension and Parkinson's disease pt presented to the ER in transfer from the [place] urgent care. He presented there earlier with complaints of left-sided weakness and paresthesias, which started over 24 hours prior to presentation. He had routine labs and imaging performed there and then he was sent to the ER to [place] for further workup and care. CT scan was not repeated here but was reportedly negative at the [place]. Pt is more alert, awake, O x 4. Looks very weak and lethargic. He does have severe resting tremors. Denied any CP / SOB. - Exam Vitals: Temp Pulse Resp BP Pulse Ox 97.6 F 67 17 158/94 98 12/26/18 07:08 12/26/18 07:08 12/26/18 07:08 12/26/18 07:08 12/26/18 07:08 Exam: Gen: Alert, awake, Oriented to time,place and person, looks very weak and lethargic Chest: Diminished breath sounds B/L, No wheezing, No crackles, No rales Heart: S1S2+ RRR No murmurs Abd: Soft, NT, BS +, No organomegaly Ext: No edema, pulses are palpable, No calf tenderness Neuro : bilateral lower extremity weakness, motor strength in both LE 3/5, severe resting tremors Skin: No rash. - Assessment and Plan (1) Left-sided weakness Current Visit: Yes Status: Acute Assessment and Plan: Possible TIA he denied anymore acute left side/focal weakness will follow-up on MRI of the head results continue NIH scale assessment appreciate neurology recommendations will follow-up on carotid Doppler (2) Parkinson disease Current Visit: Yes Status: Chronic Assessment and Plan: Resumed home medication Sinemet neurology on board appreciate neurology recommendations he does have severe physical deconditioning ordered PT/OT eval may need ECF placement for short-term rehab (3) CAD (coronary artery disease) Current Visit: Yes Status: Chronic Assessment and Plan: No active chest pains or cardiac concerns. Continue monitor him on tele resumed all home medications (4) DVT prophylaxis Current Visit: Yes Status: Acute Assessment and Plan: Heparin SQ. (5) HTN (hypertension) Current Visit: No Status: Chronic Assessment and Plan: Fairly controlled continue all home medications continue close monitoring will add IV hydralazine as needed (6) HLD (hyperlipidemia) Current Visit: No Status: Chronic Assessment and Plan: on statin - Time Spent with Patient Total time spent is greater than 50% in coordination of care (as documented) at patient's floor/unit and/or counseling patient: Internal Medicine: Result - Labs CBC & Chem 7: 12/26/18 06:01 12/26/18 06:01 Labs: Short CBC 12/25/18 12/26/18 Range/Units 19:33 06:01 WBC 7.4 6.0 (4.3-11.1) K/mcL Hgb 11.4 L 11.9 L (12.9-16.9) g/dL Hct 35.6 L 37.2 L (37.5-50.1) % Plt Count 167 155 (140-400) K/mcL Neutrophils # 4.1 3.0 (1.6-8.9) K/mcL BMP 12/25/18 12/26/18 19:33 06:01 Sodium 140 141 Potassium 4.0 4.0 Chloride 105 105 Carbon Dioxide 29 27 BUN 23 20 Creatinine 0.96 0.93 Glucose 85 97 Calcium 9.0 8.9 Cardiac Enzymes 12/25/18 Range/Units 19:33 Troponin I < 0.03 (< 0.04) ng/mL Liver Function 12/26/18 Range/Units 06:01 Total Bilirubin 0.6 (0.3-1.0) mg/dL AST 13 (13-39) Units/L ALT 10 (7-52) Units/L Alkaline Phosphatase 60 (34-104) Units/L Albumin 3.7 (3.5-5.7) g/dL Urine 12/26/18 Range/Units 05:11 Urine Color Yellow (Yellow) Urine Clarity Clear (Clear) Urine pH 6.0 (5.0-8.0) pH Units Ur Specific [place] 1.022 (1.010-1.025) Urine Protein Negative (Neg-Trace) mg/dL Urine Glucose (UA) Normal (Normal) mg/dL - ABG Interpretation ABG results: PT/INR, D-dimer PT 11.6 Seconds (9.4-12.1) 12/25/18 19:33 Consult Discharge Plan - Plan [facility]errals: [facility] [Primary Care Provider[facility] - (3) CAD (coronary artery disease) Qualifiers: Coronary Disease-Associated Artery/Lesion type: [place] artery [place] vs. transplanted heart: [place] heart Associated angina: angina presence unspecified Qualified Code(s): I25.10 - Atherosclerotic heart disease of [place] coronary artery without angina pectoris (5) HTN (hypertension) Qualifiers: Hypertension type: essential hypertension Qualified Code(s): I10 - Essential (primary) hypertension (6) HLD (hyperlipidemia) Qualifiers: Hyperlipidemia type: unspecified Qualified Code(s): E78.5 - Hyperlipidemia, unspecified
[2018-12-26] MEDS: Budesonide/Formoterol 160/4.5 1 PUFF INH IH SCH ×2 (10:12→20:02)
[2018-12-26] MEDS: Ipratropium/Albuterol Neb 3 ML IH SCH ×4 (15:05→23:27)
[2018-12-26] MEDS: MethylPREDNISolone 40 MG/ML VIAL IVP SCH ×2 (16:01)
--- NOTE | 2018-12-26 17:58 | Electrocardiograph Report ---
[place] [address] Test Date: 2018-12-25 Pat Name: Juan Navarrete Department: EXAMC5 Room: 3B Gender: M Linen Attendant: : 1940 Requested By: Osmel Rodriguez Order Number: [id number] Reading MD: Yary Mc Measurements Intervals [place] Rate: 71 P: 78 OR: 158 QRS: 74 QRSD: 95 T: 62 QT: 405 QTc: 441 Interpretive Statements Sinus rhythm Abnormal R-wave progression, early transition Electronically Signed On 12-26-2018 17:57:10 EDT by Yary Mc
--- NOTE | 2018-12-26 17:58 | Electrocardiograph Report ---
[address] [address] Test Date: 2018-12-25 Pat Name: Juan Navarrete Department: EXAMC5 Room: 3B Gender: M Auth Specialist: : 1940 Requested By: Lisa Martinez Order Number: [id number] Reading MD: Yary Mc Measurements Intervals [place] Rate: 70 P: [place]: QRS: 76 QRSD: 91 T: 87 QT: 407 QTc: 440 Interpretive Statements Atrial flutter Electronically Signed On 12-26-2018 17:57:01 EDT by Yary Mc
[2018-12-26] MEDS: Primidone 50 MG TABLET PO SCH (22:05)
[2018-12-27] MEDS: MethylPREDNISolone 40 MG/ML VIAL IVP SCH ×3 (00:59→16:25)
[2018-12-27] MEDS: Nitroglycerin 0.4 MG TAB.SUBL SL PRN ×4 (01:02→05:51)
[2018-12-27] MEDS: Acetaminophen 325 MG TABLET PO PRN ×3 (01:11→21:26)
--- NOTE | 2018-12-27 03:51 | Event Note ---
Date of Encounter: 12/27/18 Time of Encounter: 01:03 Nurse notified of patient complaining of chest pain. Minimal relief from nitro. Worse with cough which he states he has been having lately. Also worse on palpation. No ST changes noted on EKG. Patient states he has angina at home that sometimes resolves spontaneously, sometimes home nitro helps and sometimes it doesn't. Offered pain medication but patient declined. Followed up with nurse around an hour later and patient reported feeling much better. Will continue telemetry and nurse to notify of any changes.
[2018-12-27] MEDS: Ipratropium/Albuterol Neb 3 ML IH SCH ×5 (04:05→20:00)
[2018-12-27] MEDS: Benzonatate 100 MG CAPSULE PO PRN ×2 (05:50→21:14)
[2018-12-27] MEDS: *HR* Heparin 5,000 UNIT/ML VIAL SQ SCH ×3 (05:52→21:14)
[2018-12-27] MEDS: Budesonide/Formoterol 160/4.5 1 PUFF INH IH SCH ×2 (07:45→20:00)
[2018-12-27] MEDS: Isosorbide MONOnitrate (24 HR) 30 MG TAB.ER.24H PO SCH (08:39)
[2018-12-27] MEDS: Baclofen 10 MG TABLET PO SCH ×2 (08:39→21:14)
[2018-12-27] MEDS: Carbidopa/Levodopa 25/100 TABLET PO SCH ×3 (08:39→21:14)
[2018-12-27] MEDS: Pregabalin 75 MG CAPSULE PO SCH ×2 (08:39→21:14)
[2018-12-27] MEDS: Aspirin Enteric Coated 81 MG Tablet PO SCH (08:39)
[2018-12-27] MEDS ORDERED: Isovue-370 500 ML BOTTLE IVP ONE (11:07)
--- NOTE | 2018-12-27 15:39 | Internal Med Progress Note ---
Hospitalist Progress Note - Encounter Date of Encounter: 12/27/18 Time of Encounter: 15:36 - Subjective Interval History: Seen and examined at bedside. Patient is new to me, information obtained from chart review and patient report. Overall says he feels about the same. Left upper extremity weakness improved. He is complaining of shortness of breath, increase in tremors and left ear pain/discomfort. - Exam Vitals: Temp Pulse Resp BP Pulse Ox 98.5 F 89 17 160/84 94 12/27/18 11:41 12/27/18 11:41 12/27/18 15:31 12/27/18 11:41 12/27/18 15:31 Exam: Gen: Alert, awake, Oriented to time,place and person, tremors of all extremities Chest: Lungs sounds diminished with scattered wheezing Heart: S1S2+ RRR No murmurs Abd: Soft, NT, BS +, No organomegaly Ext: No edema, pulses are palpable, No calf tenderness Neuro : bilateral lower extremity weakness, motor strength in both LE 3/5, severe resting tremors Skin: No rash. - Assessment and Plan (1) COPD (chronic obstructive pulmonary disease) Current Visit: No Status: Chronic Assessment and Plan: suspect acute COPD exacerbation with SOB, diffuse wheezing and increase in sputum production. Continue IV steroids. Add azithromycin for anti- inflammatory properties. Resp PCR pending. Bronchodilators (2) Parkinson disease Current Visit: Yes Status: Chronic Assessment and Plan: per hx. Patient reported worsening of tremors. Discussed possible increase in Sinemet with neurology. Awaiting further recommendations (3) Left-sided weakness Current Visit: Yes Status: Acute Assessment and Plan: initially concerned for possible TIA. Of note patient has known left-sided upper extremity weakness from previous infarct. Brain MRI negative for acute infarct but did show a tiny focal hygroma or chronic subdural hematoma to left frontal lobe. Evaluated by neurology who did not feel symptoms were consistent with stroke/TIA. Suspect left upper extremity weakness waxes and wanes. Improved on 12/27 exam. (4) CAD (coronary artery disease) Current Visit: Yes Status: Chronic Assessment and Plan: per hx. Denied chest pain. 12/26/18 TTE with EF 50% no wall motion abnormalities. Cont home ASA, Plavix, nitrate, BB, statin. (5) HTN (hypertension) Current Visit: No Status: Chronic Assessment and Plan: per hx. BP not well-controlled. Add amlodipine. Monitor BP and titrate PRN (6) HLD (hyperlipidemia) Current Visit: No Status: Chronic Assessment and Plan: cont home statin (7) DVT prophylaxis Current Visit: Yes Status: Acute Assessment and Plan: Heparin - Time Spent with Patient Total time spent is greater than 50% in coordination of care (as documented) at patient's floor/unit and/or counseling patient: Internal Medicine: Result - Labs CBC & Chem 7: 12/26/18 06:01 12/26/18 06:01 - ABG Interpretation ABG results: PT/INR, D-dimer PT 11.6 Seconds (9.4-12.1) 12/25/18 19:33 Consult Discharge Plan - Plan [facility]errals: [facility] [Primary Care Provider] - 01/06/19 2:15 pm (1) COPD (chronic obstructive pulmonary disease) Qualifiers: COPD type: unspecified COPD Qualified Code(s): J44.9 - Chronic obstructive pulmonary disease, unspecified (4) CAD (coronary artery disease) Qualifiers: Coronary Disease-Associated Artery/Lesion type: [place] artery [place] vs. transplanted heart: [place] heart Associated angina: angina presence unspecified Qualified Code(s): I25.10 - Atherosclerotic heart disease of [place] coronary a rtery without angina pectoris (5) HTN (hypertension) Qualifiers: Hypertension type: essential hypertension Qualified Code(s): I10 - Essential (primary) hypertension (6) HLD (hyperlipidemia) Qualifiers: Hyperlipidemia type: unspecified Qualified Code(s): E78.5 - Hyperlipidemia, unspecified
[2018-12-27] MEDS: amLODIPine 5 MG TABLET PO SCH (16:34)
[2018-12-27] MEDS: Azithromycin 500 MG in D5% in Water 250 ML IVPB SCH (17:23)
[2018-12-27] MEDS ORDERED: Azithromycin 500 MG VIAL ONE (17:27)
[2018-12-27 17:51] LABS: Adenovirus Not Detected (Not Detect); Bordetella Pertussis Not Detected (Not Detect); Chlamydophila pneumoniae Not Detected (Not Detect); Coronavirus 229E Not Detected (Not Detect); Coronavirus HKU1 Not Detected (Not Detect); Coronavirus NL63 Not Detected (Not Detect); Coronavirus OC43 Not Detected (Not Detect); Human Metapneumovirus Not Detected (Not Detect); Human Rhinovirus/Enterovirus Not Detected (Not Detect); Influenza A Subtype 2009 H1 Not Detected (Not Detect); Influenza A Untypeable Not Detected (Not Detect); Influenza B Not Detected (Not Detect); Mycoplasma pneumoniae Not Detected (Not Detect); Parainfluenza Virus 1 Not Detected (Not Detect); Parainfluenza Virus 2 Not Detected (Not Detect); Parainfluenza Virus 3 Not Detected (Not Detect); Parainfluenza Virus 4 Not Detected (Not Detect); Respiratory Syncytial Virus Not Detected (Not Detect)
[2018-12-27] MEDS: Primidone 50 MG TABLET PO SCH (21:13)
[2018-12-28] MEDS: Ipratropium/Albuterol Neb 3 ML IH SCH ×6 (00:07→20:41)
[2018-12-28] MEDS: MethylPREDNISolone 40 MG/ML VIAL IVP SCH ×2 (00:58→10:57)
[2018-12-28 05:24] LABS: Hematocrit 38.9 % (37.5-50.1); Mean Corpuscular HGB Conc 33.4 g/dL (31.6-35.5); Mean Corpuscular Hemoglobin 29.4 pg (28.0-33.3); Mean Platelet Volume 10.6 fL (9.4-12.4); Platelet Count 169 K/mcL (140-400); Red Blood Count 4.42 M/mcL (4.19-5.50); Red Cell Distribution Width 13.7 % (11.5-14.5)
[2018-12-28 05:45] LABS: Alanine Aminotransferase 8 Units/L (7-52); Albumin/Globulin Ratio 1.5 (1.1-2.2); Alkaline Phosphatase 59 Units/L (34-104); Aspartate Amino Transferase 11 Units/L (13-39); BUN/Creatinine Ratio 24 (6-26); Bilirubin,Total 0.4 mg/dL (0.3-1.0); Blood Urea Nitrogen 25 mg/dL (8-23); Calcium 9.3 mg/dL (8.6-10.3); Carbon Dioxide 26 mEq/L (23-29); Chloride 102 mEq/L (98-107); Globulin 2.7 g/dL (2.4-3.5); Glucose 177 mg/dL (70-105); Osmolality,Calculated 293 (280-300); Sodium 137 mEq/L (136-145); Total Protein 6.7 g/dL (6.4-8.9); eGFR For Non-African Americans > 60 (> 60)
[2018-12-28] MEDS: *HR* Heparin 5,000 UNIT/ML VIAL SQ SCH ×3 (06:15→20:49)
[2018-12-28] MEDS: Budesonide/Formoterol 160/4.5 1 PUFF INH IH SCH ×2 (07:24→20:41)
--- NOTE | 2018-12-28 08:55 | Internal Med Progress Note ---
Hospitalist Progress Note - Encounter Date of Encounter: 12/28/18 Time of Encounter: 09:30 - Subjective Interval History: awake, sob improved, not coughing, some wheezing, no fevers or chills. no new weakness, numbness or tingling. - Exam Vitals: Temp Pulse Resp BP Pulse Ox 98.2 F 72 18 145/76 98 12/28/18 07:30 12/28/18 07:30 12/28/18 07:30 12/28/18 07:30 12/28/18 07:30 Exam: General: awake, alert, appears stated age Cardiovascular:regular rate and rhythm, normal S1 & S2, radial pulses 2+, no lower extremity edema Lungs:Normal breath sounds, no wheezes, or crackles. Normal respiratory effort on o2 nc Abdomen:Soft, non-tender, non-distended, no rigidity, + bowel sounds Neurological: AAOx3, CN grossly intact, no focal deficits can be appreciated transverse abdominal muscle surgeon strength 4/5 bl and dorsiflexion/plantarflexion 4/5 bl - Assessment and Plan (1) CAD (coronary artery disease) Current Visit: Yes Status: Chronic (2) HTN (hypertension) Current Visit: No Status: Chronic (3) HLD (hyperlipidemia) Current Visit: No Status: Chronic (4) COPD (chronic obstructive pulmonary disease) Current Visit: No Status: Chronic (5) Parkinson disease Current Visit: Yes Status: Chronic (6) Left-sided weakness Current Visit: Yes Status: Acute (7) DVT prophylaxis Current Visit: Yes Status: Acute Assessment and Plan: Heparin - Summary of Assessment and Plan Summary of Assessment and Plan: Left sided weakness, LUE, LLE Has had stroke/TIA work up MRI negative for acute infarct, tiny focal hygroma vs chronic subdural hematoma L frontal lobe and likely asx per neuro Hx of remote lacunar infarct -Neuro eval did not feel neurological cause -pt/ot Parkinson Disease -sinemet -pt/ot rec for HHC CAD HTN HLD Chest Pain episode with coughing EKG negative for ischemia Echo this admission EF 50% and no wall motion abnormalities -cont home asa, plavix, imdur, BB, statin and norvasc -copde tx as below COPDE CTA chest no PE, no acute pulm abnormlaity -decrease IV steroid, cont azitho, nebs and symbicort Acute Hypoxic resp failure 2/2 cOPDE -treatment as above -wean O2 vte ppx sq hep - Time Spent with Patient Total time spent is greater than 50% in coordination of care (as documented) at patient's floor/unit and/or counseling patient: Internal Medicine: Result - Labs CBC & Chem 7: 12/28/18 04:34 12/28/18 04:34 Labs: Short CBC 12/28/18 Range/Units 04:34 WBC 6.7 (4.3-11.1) K/mcL Hgb 13.0 (12.9-16.9) g/dL Hct 38.9 (37.5-50.1) % Plt Count 169 (140-400) K/mcL BMP 12/28/18 04:34 Sodium 137 Potassium 4.0 Chloride 102 Carbon Dioxide 26 BUN 25 H Creatinine 1.03 Glucose 177 H Calcium 9.3 Liver Function 12/28/18 Range/Units 04:34 Total Bilirubin 0.4 (0.3-1.0) mg/dL AST 11 L (13-39) Units/L ALT 8 (7-52) Units/L Alkaline Phosphatase 59 (34-104) Units/L Albumin 4.0 (3.5-5.7) g/dL - ABG Interpretation ABG results: PT/INR, D-dimer PT 11.6 Seconds (9.4-12.1) 12/25/18 19:33 - Impressions Impressions Chest CTA 12/27/18 14:30 IMPRESSION: No evidence of pulmonary embolism or acute pulmonary abnormality. D/ / Tiffanie Ball Cha, MD / Tiffanie Ball Cha, MD Interpreting Provider: Tiffanie Ball Cha, MD Consult Discharge Plan - Plan [facility] - 01/06/19 2:15 pm (1) CAD (coronary artery disease) Qualifiers: Coronary Disease-Associated Artery/Lesion type: [place] artery [place] vs. transplanted heart: [place] heart Associated angina: angina presence unspecified Qualified Code(s): I25.10 - Atherosclerotic heart disease of [place] coronary artery without angina pectoris (2) HTN (hypertension) Qualifiers: Hypertension type: essential hypertension Qualified Code(s): I10 - Essential (primary) hypertension (3) HLD (hyperlipidemia) Qualifiers: Hyperlipidemia type: unspecified Qualified Code(s): E78.5 - Hyperlipidemia, unspecified (4) COPD (chronic obstructive pulmonary disease) Qualifiers: COPD type: unspecified COPD Qualified Code(s): J44.9 - Chronic obstructive pulmonary disease, unspecified
[2018-12-28] MEDS: Pregabalin 75 MG CAPSULE PO SCH ×2 (10:54→20:50)
[2018-12-28] MEDS: Isosorbide MONOnitrate (24 HR) 30 MG TAB.ER.24H PO SCH (10:54)
[2018-12-28] MEDS: amLODIPine 5 MG TABLET PO SCH (10:55)
[2018-12-28] MEDS: Aspirin Enteric Coated 81 MG Tablet PO SCH (10:55)
[2018-12-28] MEDS: Baclofen 10 MG TABLET PO SCH ×2 (10:56→20:50)
[2018-12-28] MEDS: Carbidopa/Levodopa 25/100 TABLET PO SCH ×3 (10:56→20:50)
[2018-12-28] MEDS: Azithromycin 500 MG in D5% in Water 250 ML IVPB SCH (16:12)
[2018-12-28] MEDS: Primidone 50 MG TABLET PO SCH (20:50)
[2018-12-28] MEDS: Acetaminophen 325 MG TABLET PO PRN (20:55)
[2018-12-28] MEDS ORDERED: MethylPREDNISolone 40 MG/ML VIAL IVP SCH (21:00)
[2018-12-29] MEDS: Ipratropium/Albuterol Neb 3 ML IH SCH ×7 (00:03→23:50)
[2018-12-29] MEDS: *HR* Heparin 5,000 UNIT/ML VIAL SQ SCH ×3 (05:52→20:50)
[2018-12-29 05:55] LABS: Hematocrit 39.9 % (37.5-50.1); Hemoglobin 12.6 g/dL (12.9-16.9); Mean Corpuscular HGB Conc 31.6 g/dL (31.6-35.5); Mean Corpuscular Volume 91.7 fL (83.0-100.0); Platelet Count 182 K/mcL (140-400); Red Blood Count 4.35 M/mcL (4.19-5.50); Red Cell Distribution Width 13.6 % (11.5-14.5)
[2018-12-29 06:28] LABS: Alanine Aminotransferase 5 Units/L (7-52); Albumin 3.9 g/dL (3.5-5.7); Albumin/Globulin Ratio 1.4 (1.1-2.2); Alkaline Phosphatase 54 Units/L (34-104); Aspartate Amino Transferase 13 Units/L (13-39); BUN/Creatinine Ratio 33 (6-26); Bilirubin,Total 0.4 mg/dL (0.3-1.0); Blood Urea Nitrogen 30 mg/dL (8-23); Carbon Dioxide 26 mEq/L (23-29); Chloride 104 mEq/L (98-107); Globulin 2.8 g/dL (2.4-3.5); Glucose 166 mg/dL (70-105); Osmolality,Calculated 300 (280-300); Potassium 4.4 mEq/L (3.5-5.1); Sodium 140 mEq/L (136-145); Total Protein 6.7 g/dL (6.4-8.9); eGFR For Non-African Americans > 60 (> 60)
[2018-12-29] MEDS: Baclofen 10 MG TABLET PO SCH ×2 (08:27→20:50)
[2018-12-29] MEDS: Isosorbide MONOnitrate (24 HR) 30 MG TAB.ER.24H PO SCH (08:27)
[2018-12-29] MEDS: Aspirin Enteric Coated 81 MG Tablet PO SCH (08:27)
[2018-12-29] MEDS: amLODIPine 5 MG TABLET PO SCH (08:27)
[2018-12-29] MEDS: Pregabalin 75 MG CAPSULE PO SCH ×2 (08:27→20:50)
[2018-12-29] MEDS: Carbidopa/Levodopa 25/100 TABLET PO SCH ×3 (08:27→20:50)
[2018-12-29] MEDS: Budesonide/Formoterol 160/4.5 1 PUFF INH IH SCH ×2 (08:43→20:32)
[2018-12-29] MEDS ORDERED: predniSONE 20 MG TABLET PO SCH (09:00)
--- NOTE | 2018-12-29 09:31 | Electrocardiograph Report ---
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
--- NOTE | 2018-12-29 13:38 | Internal Med Progress Note ---
Hospitalist Progress Note - Encounter Date of Encounter: 12/29/18 Time of Encounter: 09:00 - Subjective Interval History: awake , cough improving, no sob on o2 nc, deneis wheezing. no fevers or chills. re eval later in afternoon 1315 with pt complaint dull chest pain. he is awake, alert, denies sharp pain, dull substeranl to left chest pain. similar to prior epsidoes this admission but states he hasn't been coughing. no assoicated sob,n/v, or sweats. Has had stents in past. follows with cards at [facility] at bedside. given his parkinson disease much baseline artifact, multiple ekgs and tele srip printed in effort to discern st depression or elevations and non appreciated - Exam Vitals: Temp Pulse Resp BP Pulse Ox 97.6 F 75 16 120/65 94 12/29/18 13:35 12/29/18 13:35 12/29/18 13:35 12/29/18 13:35 12/29/18 13:35 Exam: (from most recent afternoon eval) General: awake, alert, appears stated age Cardiovascular:regular rate and rhythm, normal S1 & S2, radial pulses 2+, no lower extremity edema Lungs:Normal breath sounds, no wheezes, or crackles. Normal respiratory effort on o2 nc Abdomen:Soft, non-tender, non-distended, no rigidity, + bowel sounds MSK: + pain to chest wall on right side with palpation along sternal border, but not on left Neurological: AAOx3, CN grossly intact, no focal deficits can be appreciated, significant resting UE and LE tremors at baseline (Parkinson disease) - Assessment and Plan (1) CAD (coronary artery disease) Current Visit: Yes Status: Chronic (2) HTN (hypertension) Current Visit: No Status: Chronic (3) HLD (hyperlipidemia) Current Visit: No Status: Chronic (4) COPD (chronic obstructive pulmonary disease) Current Visit: No Status: Chronic (5) Parkinson disease Current Visit: Yes Status: Chronic (6) Left-sided weakness Current Visit: Yes Status: Acute (7) DVT prophylaxis Current Visit: Yes Status: Acute - Summary of Assessment and Plan Summary of Assessment and Plan: Left sided weakness, LUE, LLE Has had stroke/TIA work up MRI negative for acute infarct, tiny focal hygroma vs chronic subdural hematoma L frontal lobe and likely asx per neuro Hx of remote lacunar infarct -Neuro eval did not feel neurological cause -pt/ot Parkinson Disease -sinemet -pt/ot rec for HHC CAD HTN HLD Chest Pain episode with coughing, recurrent chest pain episode 12/29 without coughing Follows with Cards at [facility] EKG negative for ischemia on inital episode Echo this admission EF 50% and no wall motion abnormalities EKG 12/29 multiple taken given severity of parkinson trmor, no ST elevation, cannot discern given artifact ST depression, on best rhtyhm lead reviewed he appears NSR, tele strips also printed and cannot discern ST elevation or depression on those either -repeat trops -will consider cards consult pending results -cont home asa, plavix, imdur, BB, statin and norvasc COPDE CTA chest no PE, no acute pulm abnormlaity -change to PO steroid, cont azitho, nebs and symbicort Acute Hypoxic resp failure 2/2 cOPDE -treatment as above -wean O2 -6 min walk test for home o2 qualification vte ppx sq hep - Time Spent with Patient Total time spent is greater than 50% in coordination of care (as documented) at patient's floor/unit and/or counseling patient: Internal Medicine: Result - Labs CBC & Chem 7: 12/29/18 05:32 12/29/18 05:32 Labs: Short CBC 12/29/18 Range/Units 05:32 WBC 8.0 (4.3-11.1) K/mcL Hgb 12.6 L (12.9-16.9) g/dL Hct 39.9 (37.5-50.1) % Plt Count 182 (140-400) K/mcL BMP 12/29/18 05:32 Sodium 140 Potassium 4.4 Chloride 104 Carbon Dioxide 26 BUN 30 H Creatinine 0.92 Glucose 166 H Calcium 9.0 Liver Function 12/29/18 Range/Units 05:32 Total Bilirubin 0.4 (0.3-1.0) mg/dL AST 13 (13-39) Units/L ALT 5 L (7-52) Units/L Alkaline Phosphatase 54 (34-104) Units/L Albumin 3.9 (3.5-5.7) g/dL - ABG Interpretation ABG results: PT/INR, D-dimer PT 11.6 Seconds (9.4-12.1) 12/25/18 19:33 Consult Discharge Plan - Plan Referrals: [facility] [Primary Care Provider] - 01/06/19 2:15 pm (1) CAD (coronary artery disease) Qualifiers: Coronary Disease-Associated Artery/Lesion type: [place] artery [place] vs. transplanted heart: [place] heart Associated angina: angina presence unspecified Qualified Code(s): I25.10 - Atherosclerotic heart disease of [place] coronary artery without angina pectoris (2) HTN (hypertension) Qualifiers: Hypertension type: essential hypertension Qualified Code(s): I10 - Essential (primary) hypertension (3) HLD (hyperlipidemia) Qualifiers: Hyperlipidemia type: unspecified Qualified Code(s): E78.5 - Hyperlipidemia, unspecified (4) COPD (chronic obstructive pulmonary disease) Qualifiers: COPD type: unspecified COPD Qualified Code(s): J44.9 - Chronic obstructive pulmonary disease, unspecified
[2018-12-29] MEDS: Azithromycin 500 MG in D5% in Water 250 ML IVPB SCH (15:49)
[2018-12-29] MEDS: Primidone 50 MG TABLET PO SCH (20:50)
[2018-12-30 03:08] LABS: Hemoglobin 12.8 g/dL (12.9-16.9); Mean Corpuscular Hemoglobin 29.2 pg (28.0-33.3); Mean Corpuscular Volume 91.3 fL (83.0-100.0); Mean Platelet Volume 10.9 fL (9.4-12.4); Platelet Count 181 K/mcL (140-400); Red Blood Count 4.38 M/mcL (4.19-5.50); Red Cell Distribution Width 13.6 % (11.5-14.5)
[2018-12-30 03:25] LABS: Alanine Aminotransferase 9 Units/L (7-52); Albumin 3.7 g/dL (3.5-5.7); Albumin/Globulin Ratio 1.4 (1.1-2.2); Alkaline Phosphatase 52 Units/L (34-104); Aspartate Amino Transferase 10 Units/L (13-39); BUN/Creatinine Ratio 25 (6-26); Bilirubin,Total 0.5 mg/dL (0.3-1.0); Blood Urea Nitrogen 31 mg/dL (8-23); Carbon Dioxide 29 mEq/L (23-29); Chloride 104 mEq/L (98-107); Globulin 2.7 g/dL (2.4-3.5); Glucose 136 mg/dL (70-105); Osmolality,Calculated 299 (280-300); Potassium 4.3 mEq/L (3.5-5.1); Sodium 140 mEq/L (136-145); Total Protein 6.4 g/dL (6.4-8.9); eGFR For Non-African Americans 57 (> 60)
[2018-12-30] MEDS: Ipratropium/Albuterol Neb 3 ML IH SCH ×6 (04:37→23:28)
[2018-12-30] MEDS: *HR* Heparin 5,000 UNIT/ML VIAL SQ SCH ×3 (06:21→21:41)
[2018-12-30] MEDS: Budesonide/Formoterol 160/4.5 1 PUFF INH IH SCH ×2 (07:36→20:03)
[2018-12-30] MEDS: predniSONE 20 MG TABLET PO SCH (08:44)
[2018-12-30] MEDS: Aspirin Enteric Coated 81 MG Tablet PO SCH (08:46)
[2018-12-30] MEDS: Baclofen 10 MG TABLET PO SCH ×2 (08:46→21:41)
[2018-12-30] MEDS: Carbidopa/Levodopa 25/100 TABLET PO SCH ×3 (08:46→21:41)
[2018-12-30] MEDS: Isosorbide MONOnitrate (24 HR) 30 MG TAB.ER.24H PO SCH (08:46)
[2018-12-30] MEDS: Pregabalin 75 MG CAPSULE PO SCH ×2 (08:47→21:41)
[2018-12-30] MEDS: amLODIPine 5 MG TABLET PO SCH (08:47)
--- NOTE | 2018-12-30 09:31 | Event Note ---
Date of Encounter: 12/30/18 Time of Encounter: 09:30 - Cardiology Event Note 78-year-old female presents due to left-sided weakness with no complaints of chest pain, shortness of breath, dyspnea on exertion, orthopnea, PND, presyncope or syncope. Patient has been seen and evaluated by neurology and a concern in regards to an abnormal EKG with possible artifact has prompted a consult. Upon review of the EKG there is no significant abnormalities neither ischemic nor arrhythmic. This is likely artifact from Parkinson's fine tremor. Please do not hesitate contact for further information. If there are any other questions regards to the patient's presentation please contact cardiology.
[2018-12-30] MEDS ORDERED: Ondansetron 4 MG/2 ML VIAL IVP ONE (10:02)
--- NOTE | 2018-12-30 10:20 | Electrocardiograph Report ---
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
--- NOTE | 2018-12-30 14:39 | Internal Med Progress Note ---
Hospitalist Progress Note - Encounter Date of Encounter: 12/30/18 Time of Encounter: 10:40 - Subjective Interval History: resting in bed, has been feeling nauseated since breakfast. no emesis, no abd pain. denies cp, pressure. not sob on o2 nc. cough improved. feeling gernally unwell today and appears tired. Discussed with RN and pt ate breakfast without incident then nausea began later. Will give zofran and cont to monitor. He will be walked for home o2 qualification later once feeling well. Encouraged to be OOB to chair for lunch today - Exam Vitals: Temp Pulse Resp BP Pulse Ox 98.1 F 67 16 112/58 96 12/30/18 11:10 12/30/18 11:10 12/30/18 11:19 12/30/18 11:10 12/30/18 11:19 Exam: (from most recent afternoon eval) General: awake, alert, appears stated age,tired appearing Cardiovascular:regular rate and rhythm, normal S1 & S2, no lower extremity edema Lungs:Normal breath sounds, no wheezes, rhonchi or crackles. Normal respiratory effort on o2 nc Abdomen:Soft, non-tender, non-distended, no rigidity, + bowel sounds Neurological: AAOx3, CN grossly intact, no focal deficits can be appreciated, significant resting UE and LE tremors at baseline (Parkinson disease) - Assessment and Plan (1) CAD (coronary artery disease) Current Visit: Yes Status: Chronic (2) HTN (hypertension) Current Visit: No Status: Chronic (3) HLD (hyperlipidemia) Current Visit: No Status: Chronic (4) COPD (chronic obstructive pulmonary disease) Current Visit: No Status: Chronic (5) Parkinson disease Current Visit: Yes Status: Chronic (6) Left-sided weakness Current Visit: Yes Status: Acute (7) DVT prophylaxis Current Visit: Yes Status: Acute - Summary of Assessment and Plan Summary of Assessment and Plan: Left sided weakness, LUE, LLE Has had stroke/TIA work up MRI negative for acute infarct, tiny focal hygroma vs chronic subdural hematoma L frontal lobe and likely asx per neuro Hx of remote lacunar infarct -Neuro eval did not feel neurological cause, ? related to parkinsons and deconditioning -pt/ot--HHC rec Parkinson Disease -sinemet -pt/ot rec for C CAD HTN HLD Chest Pain episode with coughing, recurrent chest pain episode 12/29 without coughing Follows with Cards at [facility] EKG negative for ischemia on initial episode Echo this admission EF 50% and no wall motion abnormalities EKG 12/29 multiple taken given severity of parkinson trmor, no ST elevation, canno t discern given artifact ST depression, on best rhtyhm lead reviewed he appears NSR, tele strips also printed and cannot discern ST elevation or depression on those either -repeat trops all remain negative -cards has commented on EKG and notes abnormalities to be artifact from tremor and no ischemic changes appreciated -cont home asa, plavix, imdur, BB, statin and norvasc -fu with cards outpt at [facility] COPDE CTA chest no PE, no acute pulm abnormality -tapering PO steroid, cont azitho to complete course, nebs and symbicort (correction to prior he was not started on rocephin by previous provider) Acute Hypoxic resp failure 2/2 COPDE -treatment as above -wean O2 -6 min walk test for home o2 qualification Nausea, single episode, resolved -cont to monitor vte ppx sq hep dispo- SW working with pt regarding dispo plan, as is HH agency does not feel comfortable taking him back and another [facility] agency needs established awaiting home o2 qualification hope to be able to dc to home with [facility] tomorrow - Time Spent with Patient Total time spent is greater than 50% in coordination of care (as documented) at patient's floor/unit and/or counseling patient: 25 - 35 minutes Plan of Care Discussed with: patient Internal Medicine: Result - Labs CBC & Chem 7: 12/30/18 02:55 12/30/18 02:55 Labs: Short CBC 12/30/18 Range/Units 02:55 WBC 8.1 (4.3-11.1) K/mcL Hgb 12.8 L (12.9-16.9) g/dL Hct 40.0 (37.5-50.1) % Plt Count 181 (140-400) K/mcL BMP 12/30/18 02:55 Sodium 140 Potassium 4.3 Chloride 104 Carbon Dioxide 29 BUN 31 H Creatinine 1.22 Glucose 136 H Calcium 9.0 Cardiac Enzymes 12/29/18 12/29/18 12/30/18 Range/Units 14:35 19:16 02:55 Troponin I < 0.03 < 0.03 < 0.03 (< 0.04) ng/mL Liver Function 12/30/18 Range/Units 02:55 Total Bilirubin 0.5 (0.3-1.0) mg/dL AST 10 L (13-39) Units/L ALT 9 (7-52) Units/L Alkaline Phosphatase 52 (34-104) Units/L Albumin 3.7 (3.5-5.7) g/dL - ABG Interpretation ABG results: PT/INR, D-dimer PT 11.6 Seconds (9.4-12.1) 12/25/18 19:33 Consult Discharge Plan - Plan [facility] - 01/06/19 2:15 pm (1) CAD (coronary artery disease) Qualifiers: Coronary Disease-Associated Artery/Lesion type: [place] artery [place] vs. tr ansplanted heart: [place] heart Associated angina: angina presence unspecified Qualified Code(s): I25.10 - Atherosclerotic heart disease of [place] coronary artery without angina pectoris (2) HTN (hypertension) Qualifiers: Hypertension type: essential hypertension Qualified Code(s): I10 - Essential (primary) hypertension (3) HLD (hyperlipidemia) Qualifiers: Hyperlipidemia type: unspecified Qualified Code(s): E78.5 - Hyperlipidemia, unspecified (4) COPD (chronic obstructive pulmonary disease) Qualifiers: COPD type: unspecified COPD Qualified Code(s): J44.9 - Chronic obstructive pulmonary disease, unspecified
[2018-12-30] MEDS ORDERED: Azithromycin 250 MG TABLET PO SCH (16:00)
--- NOTE | 2018-12-30 16:20 | Electrocardiograph Report ---
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
[2018-12-30] MEDS: Primidone 50 MG TABLET PO SCH (21:41)
[2018-12-31] MEDS: Ipratropium/Albuterol Neb 3 ML IH SCH ×4 (04:19→15:20)
[2018-12-31] MEDS: *HR* Heparin 5,000 UNIT/ML VIAL SQ SCH ×2 (05:51→12:59)
[2018-12-31 05:56] LABS: Hematocrit 39.1 % (37.5-50.1); Hemoglobin 12.7 g/dL (12.9-16.9); Mean Corpuscular HGB Conc 32.5 g/dL (31.6-35.5); Mean Corpuscular Hemoglobin 29.5 pg (28.0-33.3); Mean Corpuscular Volume 90.7 fL (83.0-100.0); Mean Platelet Volume 11.1 fL (9.4-12.4); Platelet Count 166 K/mcL (140-400); Red Blood Count 4.31 M/mcL (4.19-5.50); Red Cell Distribution Width 13.5 % (11.5-14.5)
[2018-12-31 06:18] LABS: Alanine Aminotransferase 10 Units/L (7-52); Albumin 3.6 g/dL (3.5-5.7); Albumin/Globulin Ratio 1.4 (1.1-2.2); Alkaline Phosphatase 49 Units/L (34-104); Aspartate Amino Transferase 12 Units/L (13-39); BUN/Creatinine Ratio 34 (6-26); Bilirubin,Total 0.5 mg/dL (0.3-1.0); Blood Urea Nitrogen 32 mg/dL (8-23); Carbon Dioxide 26 mEq/L (23-29); Chloride 105 mEq/L (98-107); Globulin 2.6 g/dL (2.4-3.5); Glucose 126 mg/dL (70-105); Osmolality,Calculated 298 (280-300); Potassium 4.1 mEq/L (3.5-5.1); Sodium 140 mEq/L (136-145); Total Protein 6.2 g/dL (6.4-8.9); eGFR For Non-African Americans > 60 (> 60)
[2018-12-31] MEDS: Budesonide/Formoterol 160/4.5 1 PUFF INH IH SCH (07:33)
[2018-12-31] MEDS: predniSONE 20 MG TABLET PO SCH (07:48)
[2018-12-31] MEDS: Pregabalin 75 MG CAPSULE PO SCH (07:48)
[2018-12-31] MEDS: Isosorbide MONOnitrate (24 HR) 30 MG TAB.ER.24H PO SCH (07:49)
[2018-12-31] MEDS: Aspirin Enteric Coated 81 MG Tablet PO SCH (07:49)
[2018-12-31] MEDS: amLODIPine 5 MG TABLET PO SCH (07:49)
[2018-12-31] MEDS: Carbidopa/Levodopa 25/100 TABLET PO SCH ×2 (07:49→14:09)
[2018-12-31] MEDS: Baclofen 10 MG TABLET PO SCH (07:49)
[2018-12-31 11:31] VITALS: BP 120/72
[2018-12-31] MEDS ORDERED: Azithromycin 250 MG TABLET PO ONE (12:26)
--- NOTE | 2018-12-31 12:27 | Discharge Summary ---
- NOTES TO OUTPATIENT PROVIDER Notes to Outpatient Provider: completed abx course here. Prednisone taper outpt. Follow up for COPDE. 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 related to parkinsons and deconditioning -pt/ot--[facility] rec (2) CAD (coronary artery disease) Priority: Secondary Status: Chronic Assessment and Plan: CAD HTN HLD Chest Pain episode with coughing, recurrent chest pain episode 4/7 without coughing Follows with Cards at [facility] EKG negative for ischemia on initial episode Echo this admission EF 50% and no wall motion abnormalities EKG 4/7 multiple taken given severity of parkinson trmor, no ST elevation, cannot discern given artifact ST depression, on best rhtyhm lead reviewed he appears NSR, tele strips also printed and cannot discern ST elevation or depression on those either -repeat trops all remain negative -cards has commented on EKG and notes abnormalities to be artifact from tremor and no ischemic changes appreciated -cont home asa, plavix, imdur, BB, statin and norvasc -fu with cards outpt at [facility] Qualifiers: Coronary Disease-Associated Artery/Lesion type: [place] artery [place] vs. transplanted heart: [place] heart Associated angina: angina presence unspecified Qualified Code(s): I25.10 - Atherosclerotic heart disease of [place] coronary artery without angina pectoris (3) HTN (hypertension) Priority: Secondary Status: Chronic Assessment and Plan: cont home meds Qualifiers: Hypertension type: essential hypertension Qualified Code(s): I10 - Essential (primary) hypertension (4) HLD (hyperlipidemia) Priority: Secondary Status: Chronic Assessment and Plan: cont home meds Qualifiers: Hyperlipidemia type: unspecified Qualified Code(s): E78.5 - Hyperlipidemia, unspecified (5) COPD (chronic obstructive pulmonary disease) Priority: Secondary Status: Chronic Assessment and Plan: COPDE CTA chest no PE, no acute pulm abnormality -tapering PO steroid, cont outpt, azitho completed course, nebs and symbicort (correction to prior he was not started on rocephin by previous provider) -qualified for home o2 nc Qualifiers: COPD type: unspecified COPD Qualified Code(s): J44.9 - Chronic obstructive pulmonary disease, unspecified (6) Parkinson disease Priority: Secondary Status: Chronic Assessment and Plan: cont home meds (7) DVT prophylaxis Priority: Secondary Status: Acute (8) Acute respiratory failure with hypoxia Priority: Secondary Status: Acute Assessment and Plan: Acute Hypoxic resp failure 2/2 COPDE -treatment as above -6 min walk test for home o2 qualification- 2L continuous [facility] Hospital course: Mr. Navarrete is a 78 year old male who was admitted with left sided weakness. He had a neurologic work up that was negative for acute findings. Neurology followed him and did not suspect acute neuro incident, though perhaps related to his parkinsons and deconditioning. He developed sob and cough and was diagnosed with COPDE exacerbation, confirmed by abscence of findings on CTA chest. He was treated with IV abx, steroids, nebs and qualified for home o2 this admission. Throughout his stary he had intermittent chest pain, suspected to be MSK, though given his CAD hx, cards was notified who reviewed ekgs and recommended cont home meds and [facility]pt [facility] as no acute ischemic changes identified. 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 Further details of his course are noted in the a/p section of this document. Discharge discussed with: patient, nurse, case management Time spent discussing smoking cessation with patient: more than 10 minutes - Time Spent with Patient Total time spent providing and/or coordinating discharge services: Time spent: Greater than 30 minutes (35 min) - Discharge Medications Prescriptions: New predniSONE [PredniSONE] See Taper PO DAILY #3 tablet Continue Allopurinol [Zyloprim 100 MG] 100 mg PO DAILY Baclofen [Lioresal] 10 mg PO BID Benzonatate [Tessalon] 100 mg PO Q6H PRN PRN Reason: Cough Budesonide/Formoterol 160/4.5 [Symbicort 160/4.5] 2 puff IH Q12H Carbidopa/Levodopa [Carbidopa-Levodopa 25-100 Tab] 1 tab PO TID Clopidogrel [Plavix] 75 mg PO DAILY Isosorbide MONOnitrate [Isosorbide Mononitrate ER] 30 mg PO DAILY Lactulose 10 gm PO BID PRN PRN Reason: Constipation Nitroglycerin [Nitrostat] 0.4 mg SL AD PRN MDD 3 DOSES X5MIN CALL 911 PRN Reason: Chest Pain Pantoprazole Sodium [Protonix] 40 mg PO DAILY Pravastatin Sodium [Pravachol] 40 mg PO HS Primidone [Mysoline] 100 mg PO HS Propranolol [Inderal] 10 mg PO TID Tamsulosin HCl [Flomax] 0.8 mg PO QPM Pregabalin [Lyrica] 225 mg PO BID Acetaminophen [Tylenol] 650 mg PO Q6H PRN PRN Reason: Pain Aspirin [Lo-Dose Aspirin EC] 81 mg PO DAILY Ipratropium Neb 2.5 ml IH QID Levalbuterol [Xopenex INH] 2 puff IH Q4H PRN PRN Reason: Shortness Of Breath Theophylline Anhydrous [Theodur] 150 mg PO BID Home Medications: Allopurinol [Zyloprim 100 MG] 100 mg PO DAILY 11/22/18 [History] Baclofen [Lioresal] 10 mg PO BID 11/22/18 [History] Benzonatate [Tessalon] 100 mg PO Q6H PRN 11/22/18 [History] Budesonide/Formoterol 160/4.5 [Symbicort 160/4.5] 2 puff IH Q12H 11/22/18 [History] Carbidopa/Levodopa [Carbidopa-Levodopa 25-100 Tab] 1 tab PO TID 11/22/18 [History] Clopidogrel [Plavix] 75 mg PO DAILY 11/22/18 [History] Isosorbide MONOnitrate [Isosorbide Mononitrate ER] 30 mg PO DAILY 11/22/18 [History] Lactulose 10 gm PO BID PRN 11/22/18 [History] Nitroglycerin [Nitrostat] 0.4 mg SL AD PRN MDD 3 DOSES X5MIN CALL 911 11/22/18 [History] Pantoprazole Sodium [Protonix] 40 mg PO DAILY 11/22/18 [History] Pravastatin Sodium [Pravachol] 40 mg PO HS 11/22/18 [History] Primidone [Mysoline] 100 mg PO HS 11/22/18 [History] Propranolol [Inderal] 10 mg PO TID 11/22/18 [History] Tamsulosin HCl [Flomax] 0.8 mg PO QPM 11/22/18 [History] Pregabalin [Lyrica] 225 mg PO BID 12/25/18 [History] Acetaminophen [Tylenol] 650 mg PO Q6H PRN 12/26/18 [History] Aspirin [Lo-Dose Aspirin EC] 81 mg PO DAILY 12/26/18 [History] Ipratropium Neb 2.5 ml IH QID 12/26/18 [History] Levalbuterol [Xopenex INH] 2 puff IH Q4H PRN 12/26/18 [History] Theophylline Anhydrous [Theodur] 150 mg PO BID 12/26/18 [History] predniSONE [PredniSONE] See Taper PO DAILY #3 tablet 12/31/18 [Rx] Allergies/Adverse Reactions: Allergy/AdvReac Type Severity Reaction Status Date / Time codeine Allergy Drowsy Verified 03/28/16 11:58 gabapentin Allergy See Verified 12/25/18 18:41 Comments meperidine [From Demerol] Allergy See Verified 11/22/18 14:17 Comments lovastatin AdvReac See Verified 11/22/18 14:17 Comments pramipexole AdvReac See Verified 12/25/18 18:41 Comments simvastatin AdvReac See Verified 11/22/18 14:17 Comments venlafaxine AdvReac See Verified 12/25/18 18:41 Comments Date of admission: 12/25/18 23:57 [facility] care physician: [facility] Consults: 12/25/18 23:58 Consult to Neurology [CONS] Routine Consulting Provider: Neu[facility] Reason for Consult: left sided weakness (new); 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; Parkinson's disease Call Completed: No 12/26/18 10:02 Consult to Physical Therapy [CONS] Routine Comment: Evaluate, develop and implement POC Reason for Consult: Known parkinson's - deconditioning Does patient have active BEDREST order?: No Is patient medically & hemodynamically stable?: Yes Patient assessed for mobility or mobilized this visit?: Yes OT [Consult to Occupational Therapy] [CONS] Routine Comment: Evaluate, develop and implement POC Reason for Consult: Deconditioning Does patient have active BEDREST order?: No Is patient medically & hemodynamically stable?: Yes Patient assessed for mobility or mobilized this visit?: Yes 12/29/18 13:31 Consult to Cardiology [CONS] Routine Comment: Consulting Provider: [facility] Reason for Consult: CAD PCI hx, here with copd exacerbation, having cp episodes, has parkinson and ekgs abnormal with artifact, please eval for need for further work up inpt Call Completed: Yes 12/30/18 08:56 Consult to Nurse Navigator [CONS] Routine Comment: COPD Discharging clinician: Minda Cruz - Constitutional Vitals: Temp Pulse Resp BP Pulse Ox 98.2 F 70 20 120/72 98 12/31/18 11:30 12/31/18 11:30 12/31/18 11:31 12/31/18 11:30 12/31/18 11:31 General appearance: Present: cooperative, A&O X 3, pleasant, no acute distress, answers questions appropriately Exam: awake, feeling better, eager for discharge. no sob on o2 nc. cough better, no wheezing. no cp, pressure or palpitations. discharge plan discussed in detail and all questions answered General: awake, alert, appears stated age Cardiovascular:regular rate and rhythm, normal S1 & S2, no lower extremity edema Lungs:Normal breath sounds, no wheezes, rhonchi or crackles. Normal respiratory effort on o2 nc Abdomen:Soft, non-tender, non-distended, + bowel sounds Neurological: AAOx3, significant resting UE and LE tremors at baseline (Parkinson disease) - Patient Status Disposition: Home Health Service Condition: Good Overall status at discharge: patient is progressing back to baseline - Discharge Instructions Follow Up With: MD,PCP [Primary Care Provider] - 01/06/19 2:15 pm Additional Instructions: You require a two day steroid taper. Next dose is 4/10 in morning 20 mg. Then the following day 4/11 10 mg in the morning. Then the taper is done. This prescription has been sent to your [facility] and you may pick it up there. Wear your new home oxygen at all times, 2L - Diet and Activity Activity: as per physical therapy, increase activity as tolerated, wear oxygen at all times Diet: advance to your usual diet, low fat, low cholesterol, low salt diet
--- NOTE | 2018-12-31 12:47 | Physician Discharge Referral ---
Home Health/Hosp Referral Info Transfer to: Home Health Provider in Charge Post Discharge: PCP - Diagnosis (1) Left-sided weakness Priority: Primary Status: Acute (2) CAD (coronary artery disease) Priority: Secondary Status: Chronic (3) HTN (hypertension) Priority: Secondary Status: Chronic (4) HLD (hyperlipidemia) Priority: Secondary Status: Chronic (5) COPD (chronic obstructive pulmonary disease) Priority: Secondary Status: Chronic (6) Parkinson disease Priority: Secondary Status: Chronic (7) DVT prophylaxis Priority: Secondary Status: Acute (8) Acute respiratory failure with hypoxia Priority: Secondary Status: Acute - Respiratory Orders Oxygen / L per min (2L continuous) Smoking Cessation: Smoking cessation has been advised. For more information, call the [employer] Tobacco Quit Line at 4-137-YRBL-NOW. - Diet/Nutrition Diet/Nutrition Orders: No Added Salt (NATALEE), Cardiac - Activity Activity Orders: Up ad rk (as per PT) - Services Needed Following services are medically necessary services: Nursing, Home Health Aide, Physical Therapy, Occupational Therapy - Transfer Medications Prescriptions: predniSONE [PredniSONE] See Taper PO DAILY #3 tablet Home Medications: Allopurinol [Zyloprim 100 MG] 100 mg PO DAILY 11/22/18 [History] Baclofen [Lioresal] 10 mg PO BID 11/22/18 [History] Benzonatate [Tessalon] 100 mg PO Q6H PRN 11/22/18 [History] Budesonide/Formoterol 160/4.5 [Symbicort 160/4.5] 2 puff IH Q12H 11/22/18 [History] Carbidopa/Levodopa [Carbidopa-Levodopa 25-100 Tab] 1 tab PO TID 11/22/18 [History] Clopidogrel [Plavix] 75 mg PO DAILY 11/22/18 [History] Isosorbide MONOnitrate [Isosorbide Mononitrate ER] 30 mg PO DAILY 11/22/18 [History] Lactulose 10 gm PO BID PRN 11/22/18 [History] Nitroglycerin [Nitrostat] 0.4 mg SL AD PRN MDD 3 DOSES X5MIN CALL 911 11/22/18 [History] Pantoprazole Sodium [Protonix] 40 mg PO DAILY 11/22/18 [History] Pravastatin Sodium [Pravachol] 40 mg PO HS 11/22/18 [History] Primidone [Mysoline] 100 mg PO HS 11/22/18 [History] Propranolol [Inderal] 10 mg PO TID 11/22/18 [History] Tamsulosin HCl [Flomax] 0.8 mg PO QPM 11/22/18 [History] Pregabalin [Lyrica] 225 mg PO BID 12/25/18 [History] Acetaminophen [Tylenol] 650 mg PO Q6H PRN 12/26/18 [History] Aspirin [Lo-Dose Aspirin EC] 81 mg PO DAILY 12/26/18 [History] Ipratropium Neb 2.5 ml IH QID 12/26/18 [History] Levalbuterol [Xopenex INH] 2 puff IH Q4H PRN 12/26/18 [History] Theophylline Anhydrous [Theodur] 150 mg PO BID 12/26/18 [History] predniSONE [PredniSONE] See Taper PO DAILY #3 tablet 12/31/18 [Rx] Allergies/Adverse Reactions: Allergy/AdvReac Type Severity Reaction Status Date / Time codeine Allergy Drowsy Verified 03/28/16 11:58 gabapentin Allergy See Verified 12/25/18 18:41 Comments meperidine [From Demerol] Allergy See Verified 11/22/18 14:17 Comments lovastatin AdvReac See Verified 11/22/18 14:17 Comments pramipexole AdvReac See Verified 12/25/18 18:41 Comments simvastatin AdvReac See Verified 11/22/18 14:17 Comments venlafaxine AdvReac See Verified 12/25/18 18:41 Comments Certification: Further, I certify that my clinical findings support that this patient is homebound (i.e. absences from home require considerable and taxing effort and are for medical reasons or zoroastrian services or infrequently or short duration when for other reasons) because: Homebound Reason: Patient requires assistance of a person or device to safely leave home, Leaving home requires considerable and taxing effort due to condition Attestation: My signature below is to certify that this patient is under my care and that I, or nurse practitioner, or a physician's registered dental assistant working with me, has a [id number] encounter with this patient.
== END 2018-12-31 18:02 | disposition home health service (06) | DRG 56 ==
LOC: EMEROOARM 18:18 → 3BNU 18:18 → SUATTDRO 23:57 → 3BNU 12-26 00:29
PROVIDERS: ADMIT Family Medicine; ATTEND Internal Medicine

== ENCOUNTER 2020-06-05 21:22 | Observation (INO) ==
[2020-06-05] MEDS ORDERED: Isovue-370 500 ML BOTTLE IVP ONE (21:38)
[2020-06-05 22:23] LABS: INR 1.1; Prothrombin Time 12.2 Seconds (9.4-12.1)
[2020-06-05 22:25] LABS: Basophils # 0.1 K/mcL (0.0-0.2); Basophils % 0.7 %; Eosinophils # 0.2 K/mcL (0.0-0.6); Eosinophils % 2.6 %; Hemoglobin 10.6 g/dL (12.9-16.9); Immature Granulocytes % 0.2 % (0-4); Lymphocytes # 1.7 K/mcL (0.6-4.6); Lymphocytes % 20.2 %; Mean Corpuscular HGB Conc 31.2 g/dL (31.6-35.5); Mean Corpuscular Hemoglobin 28.4 pg (28.0-33.3); Mean Corpuscular Volume 91.2 fL (83.0-100.0); Mean Platelet Volume 11.4 fL (9.4-12.4); Monocytes # 0.8 K/mcL (0.0-1.3); Monocytes % 8.9 %; Neutrophils # 5.8 K/mcL (1.6-8.9); Platelet Count 178 K/mcL (140-400); Red Blood Count 3.73 M/mcL (4.19-5.50); Red Cell Distribution Width 13.6 % (11.5-14.5); Segmented Neutrophils % 67.4 %; White Blood Count 8.6 K/mcL (4.3-11.1)
[2020-06-05 22:25] LABS: Activated Partial Thrombo Time 32.1 Seconds (26.0-36.0)
[2020-06-05 22:35] LABS: Alanine Aminotransferase 7 Units/L (7-52); Albumin 3.8 g/dL (3.5-5.7); Albumin/Globulin Ratio 1.4 (1.1-2.2); Alkaline Phosphatase 78 Units/L (34-104); Aspartate Amino Transferase 16 Units/L (13-39); BUN/Creatinine Ratio 30 (6-26); Bilirubin,Direct 0.1 mg/dL (0.0-0.2); Bilirubin,Indirect 0.2 mg/dL (0.0-1.0); Bilirubin,Total 0.3 mg/dL (0.3-1.0); Blood Urea Nitrogen 32 mg/dL (8-23); Calcium 9.3 mg/dL (8.6-10.3); Carbon Dioxide 25 mEq/L (23-29); Chloride 102 mEq/L (98-107); Globulin 2.7 g/dL (2.4-3.5); Glucose 121 mg/dL (70-105); Lipase 48 Units/L (11-82); Osmolality,Calculated 288 (280-300); Potassium 4.8 mEq/L (3.5-5.1); Sodium 135 mEq/L (136-145); Total Protein 6.5 g/dL (6.4-8.9); Troponin I < 0.03 ng/mL (< 0.04); eGFR For African Americans > 60 (> 60); eGFR For Non-African Americans > 60 (> 60)
[2020-06-05 22:43] LABS: Bilirubin,Urine Negative (Negative); Blood,Urine Negative (Negative); Clarity,Urine Clear (Clear); Color,Urine Yellow (Yellow); Glucose,Urine (UA) Normal (Normal); Ketones,Urine Trace mg/dL (Negative); Leukocyte Esterase,Urine Negative (Negative); Nitrite,Urine Negative (Negative); PH,Urine 6.5 pH Units (5.0-8.0); Protein,Urine Negative (Neg-Trace); Urobilinogen,Urine Normal (Normal)
[2020-06-06 01:08] LABS: Adenovirus Not Detected (Not Detect); Bordetella Pertussis Not Detected (Not Detect); Chlamydophila pneumoniae Not Detected (Not Detect); Coronavirus 229E Not Detected (Not Detect); Coronavirus HKU1 Not Detected (Not Detect); Coronavirus NL63 Not Detected (Not Detect); Coronavirus OC43 Not Detected (Not Detect); Human Metapneumovirus Not Detected (Not Detect); Human Rhinovirus/Enterovirus Not Detected (Not Detect); Influenza A Subtype 2009 H1 Not Detected (Not Detect); Influenza B Not Detected (Not Detect); Mycoplasma pneumoniae Not Detected (Not Detect); Parainfluenza Virus 1 Not Detected (Not Detect); Parainfluenza Virus 2 Not Detected (Not Detect); Parainfluenza Virus 3 Not Detected (Not Detect); Parainfluenza Virus 4 Not Detected (Not Detect); Respiratory Syncytial Virus Not Detected (Not Detect); SARS-CoV-2 Not Detected (Not Detect)
[2020-06-06] MEDS ORDERED: Perflutren Lipid Microsphere 1.3 ML in 0.9 % Sodium Chloride 8.7 ML IVP PRN (02:29)
[2020-06-06] MEDS ORDERED: Nitroglycerin 0.4 MG TAB.SUBL SL PRN (02:30)
[2020-06-06] MEDS ORDERED: Ondansetron 4 MG/2 ML VIAL IVP PRN (02:31)
[2020-06-06] MEDS ORDERED: Naloxone 0.4 MG/ML INJ IVP PRN (02:31)
[2020-06-06] MEDS: *HR* Heparin 5,000 UNIT/ML VIAL SQ SCH ×3 (05:19→19:41)
[2020-06-06 07:34] LABS: Hematocrit 34.6 % (37.5-50.1); Hemoglobin 10.6 g/dL (12.9-16.9); Mean Corpuscular HGB Conc 30.6 g/dL (31.6-35.5); Mean Corpuscular Volume 91.5 fL (83.0-100.0); Mean Platelet Volume 10.9 fL (9.4-12.4); Platelet Count 157 K/mcL (140-400); Red Blood Count 3.78 M/mcL (4.19-5.50); Red Cell Distribution Width 13.7 % (11.5-14.5); White Blood Count 6.1 K/mcL (4.3-11.1)
[2020-06-06] MEDS ORDERED: Regadenoson 0.4 MG/5 ML SYRINGE IVP ONE (07:39)
[2020-06-06 07:53] LABS: BUN/Creatinine Ratio 24 (6-26); Blood Urea Nitrogen 27 mg/dL (8-23); Calcium 9.2 mg/dL (8.6-10.3); Carbon Dioxide 31 mEq/L (23-29); Chloride 103 mEq/L (98-107); Chol/HDL Ratio 3.3 (0-4.9); Cholesterol 97 mg/dL (< 200); Glucose 100 mg/dL (70-105); HDL Cholesterol 29 mg/dL (40-59); LDL Cholesterol,Calculated 49 mg/dL (< 100); Magnesium 2.2 mg/dL (1.6-2.6); Osmolality,Calculated 291 (280-300); Phosphorous 3.4 mg/dL (2.7-4.5); Potassium 4.1 mEq/L (3.5-5.1); Sodium 138 mEq/L (136-145); Triglycerides 94 mg/dL (< 150); eGFR For African Americans > 60 (> 60); eGFR For Non-African Americans > 60 (> 60)
[2020-06-06 08:07] LABS: Thyroid Stimulating Hormone 1.088 mcIU/mL (0.340-5.600)
[2020-06-06] MEDS: Aspirin 81 MG TAB.CHEW PO SCH (08:24)
[2020-06-06] MEDS: Acetaminophen 325 MG TABLET PO PRN ×2 (08:27→19:41)
[2020-06-07 01:54] LABS: Basophils # 0.1 K/mcL (0.0-0.2); Basophils % 0.7 %; Eosinophils # 0.2 K/mcL (0.0-0.6); Eosinophils % 2.4 %; Hematocrit 35.5 % (37.5-50.1); Hemoglobin 11.3 g/dL (12.9-16.9); Immature Granulocytes % 0.2 % (0-4); Lymphocytes # 1.8 K/mcL (0.6-4.6); Lymphocytes % 20.7 %; Mean Corpuscular HGB Conc 31.8 g/dL (31.6-35.5); Mean Corpuscular Hemoglobin 28.5 pg (28.0-33.3); Mean Corpuscular Volume 89.6 fL (83.0-100.0); Mean Platelet Volume 11.5 fL (9.4-12.4); Monocytes # 0.7 K/mcL (0.0-1.3); Neutrophils # 5.8 K/mcL (1.6-8.9); Platelet Count 169 K/mcL (140-400); Red Blood Count 3.96 M/mcL (4.19-5.50); Red Cell Distribution Width 13.3 % (11.5-14.5); White Blood Count 8.6 K/mcL (4.3-11.1)
[2020-06-07 02:17] LABS: BUN/Creatinine Ratio 23 (6-26); Blood Urea Nitrogen 27 mg/dL (8-23); Calcium 8.8 mg/dL (8.6-10.3); Carbon Dioxide 27 mEq/L (23-29); Chloride 101 mEq/L (98-107); Glucose 82 mg/dL (70-105); Osmolality,Calculated 286 (280-300); Potassium 4.3 mEq/L (3.5-5.1); Sodium 136 mEq/L (136-145); eGFR For African Americans > 60 (> 60); eGFR For Non-African Americans 60 (> 60)
[2020-06-07] MEDS: *HR* Heparin 5,000 UNIT/ML VIAL SQ SCH (05:10)
[2020-06-07 07:04] VITALS: BP 160/82
[2020-06-07] MEDS: Aspirin 81 MG TAB.CHEW PO SCH (08:13)
[2020-06-07] MEDS: Acetaminophen 325 MG TABLET PO PRN (08:14)
== END 2020-06-07 11:56 ==
LOC: 3BNU 21:22 → EMEROOARM 21:22 → SUATTDRO 06-06 01:17 → 3BNU 06-06 01:54
PROVIDERS: ADMIT Student in an Organized Health Care Education/Training Program; ATTEND Nurse Practitioner Adult Health

== ENCOUNTER 2022-02-15 11:41 | Observation (INO) ==
[2022-02-15 13:29] LABS: Basophils # 0.1 K/mcL (0.0-0.2); Basophils % 0.9 %; Eosinophils # 0.1 K/mcL (0.0-0.6); Hematocrit 38.4 % (37.5-50.1); Hemoglobin 12.5 g/dL (12.9-16.9); Immature Granulocytes % 0.3 % (0-4); Lymphocytes # 1.9 K/mcL (0.6-4.6); Lymphocytes % 28.6 %; Mean Corpuscular HGB Conc 32.6 g/dL (31.6-35.5); Mean Corpuscular Hemoglobin 30.3 pg (28.0-33.3); Mean Corpuscular Volume 93.2 fL (83.0-100.0); Mean Platelet Volume 10.7 fL (9.4-12.4); Monocytes # 0.7 K/mcL (0.0-1.3); Monocytes % 10.8 %; Neutrophils # 3.9 K/mcL (1.6-8.9); Platelet Count 173 K/mcL (140-400); Red Blood Count 4.12 M/mcL (4.19-5.50); Red Cell Distribution Width 12.9 % (11.5-14.5); Segmented Neutrophils % 58.4 %; White Blood Count 6.7 K/mcL (4.3-11.1)
[2022-02-15 14:31] LABS: Influenza A PCR Negative (Negative); Influenza B PCR Negative (Negative); Resp. Syncytial Virus PCR Negative (Negative)
[2022-02-15 14:47] LABS: Troponin I < 0.03 ng/mL (< 0.04)
[2022-02-15 14:48] LABS: BUN/Creatinine Ratio 20 (6-26); Blood Urea Nitrogen 23 mg/dL (8-23); Calcium 8.7 mg/dL (8.6-10.3); Carbon Dioxide 29 mEq/L (23-29); Chloride 103 mEq/L (98-107); Glucose 90 mg/dL (70-105); Osmolality,Calculated 289 (280-300); Potassium 4.3 mEq/L (3.5-5.1); Sodium 138 mEq/L (136-145); eGFR For African Americans > 60 (> 60); eGFR For Non-African Americans > 60 (> 60)
[2022-02-15 15:59] LABS: SARS-CoV-2 by PCR (In House) Negative (Negative)
[2022-02-15] MEDS ORDERED: Ondansetron 4 MG/2 ML VIAL IVP PRN (17:36)
[2022-02-15] MEDS ORDERED: Acetaminophen 325 MG TABLET PO PRN (19:28)
[2022-02-15] MEDS: *HR* Heparin 5,000 UNIT/ML VIAL SQ SCH (19:53)
[2022-02-16 01:36] LABS: Basophils # 0.1 K/mcL (0.0-0.2); Basophils % 0.7 %; Eosinophils # 0.1 K/mcL (0.0-0.6); Eosinophils % 0.9 %; Hemoglobin 12.8 g/dL (12.9-16.9); Immature Granulocytes % 0.3 % (0-4); Lymphocytes # 1.8 K/mcL (0.6-4.6); Lymphocytes % 24.9 %; Mean Corpuscular Hemoglobin 29.5 pg (28.0-33.3); Mean Corpuscular Volume 92.2 fL (83.0-100.0); Mean Platelet Volume 10.7 fL (9.4-12.4); Monocytes # 0.7 K/mcL (0.0-1.3); Monocytes % 9.2 %; Neutrophils # 4.7 K/mcL (1.6-8.9); Platelet Count 179 K/mcL (140-400); Red Blood Count 4.34 M/mcL (4.19-5.50); Red Cell Distribution Width 12.8 % (11.5-14.5); White Blood Count 7.4 K/mcL (4.3-11.1)
[2022-02-16 01:58] LABS: BUN/Creatinine Ratio 21 (6-26); Blood Urea Nitrogen 23 mg/dL (8-23); Calcium 8.6 mg/dL (8.6-10.3); Carbon Dioxide 26 mEq/L (23-29); Chloride 105 mEq/L (98-107); Glucose 91 mg/dL (70-105); Osmolality,Calculated 291 (280-300); Potassium 4.3 mEq/L (3.5-5.1); Sodium 139 mEq/L (136-145); Troponin I < 0.03 ng/mL (< 0.04); eGFR For African Americans > 60 (> 60); eGFR For Non-African Americans > 60 (> 60)
[2022-02-16] MEDS: *HR* Heparin 5,000 UNIT/ML VIAL SQ SCH ×2 (06:07→17:59)
[2022-02-16] MEDS ORDERED: MOM Conc 10 ML UD.LIQ PO PRN (08:07)
[2022-02-16] MEDS: allopurinoL 100 MG TABLET PO SCH (09:42)
[2022-02-16] MEDS: Pregabalin 75 MG CAPSULE PO SCH ×2 (09:42→20:32)
[2022-02-16] MEDS: Finasteride 5 MG TABLET PO SCH (09:42)
[2022-02-16] MEDS: Simethicone 80 MG TAB.CHEW PO SCH ×3 (09:42→20:31)
[2022-02-16] MEDS: Aspirin Enteric Coated 81 MG Tablet PO SCH (09:42)
[2022-02-16] MEDS: Acetaminophen 325 MG TABLET PO PRN ×2 (09:46→20:31)
[2022-02-16] MEDS ORDERED: Regadenoson 0.4 MG/5 ML SYRINGE IVP ONE (12:02)
[2022-02-16] MEDS: Carbidopa/Levodopa 25/100 TABLET PO SCH ×3 (12:21→20:32)
[2022-02-16] MEDS: Isosorbide MONOnitrate (24 HR) 30 MG TAB.ER.24H PO SCH (14:18)
[2022-02-16] MEDS: Primidone 50 MG TABLET PO SCH (20:32)
[2022-02-16] MEDS: Melatonin 3 MG TABLET PO SCH (20:32)
[2022-02-17] MEDS: *HR* Heparin 5,000 UNIT/ML VIAL SQ SCH ×2 (05:43→16:24)
[2022-02-17] MEDS: allopurinoL 100 MG TABLET PO SCH (08:03)
[2022-02-17] MEDS: Pregabalin 75 MG CAPSULE PO SCH ×2 (08:03→21:32)
[2022-02-17] MEDS: Simethicone 80 MG TAB.CHEW PO SCH ×3 (08:03→21:41)
[2022-02-17] MEDS: Finasteride 5 MG TABLET PO SCH (08:03)
[2022-02-17] MEDS: Isosorbide MONOnitrate (24 HR) 30 MG TAB.ER.24H PO SCH ×2 (08:03→13:55)
[2022-02-17] MEDS: Aspirin Enteric Coated 81 MG Tablet PO SCH (08:03)
[2022-02-17] MEDS: Carbidopa/Levodopa 25/100 TABLET PO SCH ×4 (08:10→21:41)
[2022-02-17] MEDS ORDERED: Perflutren Lipid Microsphere 1.3 ML in 0.9 % Sodium Chloride 8.7 ML IVP PRN (13:00)
[2022-02-17] MEDS: Acetaminophen 325 MG TABLET PO PRN ×2 (16:23→21:46)
[2022-02-17] MEDS: Primidone 50 MG TABLET PO SCH (21:32)
[2022-02-17] MEDS: Melatonin 3 MG TABLET PO SCH (21:32)
[2022-02-18] MEDS: *HR* Heparin 5,000 UNIT/ML VIAL SQ SCH ×2 (05:25→17:09)
[2022-02-18] MEDS: allopurinoL 100 MG TABLET PO SCH (09:13)
[2022-02-18] MEDS: Aspirin Enteric Coated 81 MG Tablet PO SCH (09:13)
[2022-02-18] MEDS: Isosorbide MONOnitrate (24 HR) 30 MG TAB.ER.24H PO SCH (09:13)
[2022-02-18] MEDS: Pregabalin 75 MG CAPSULE PO SCH ×2 (09:13→20:14)
[2022-02-18] MEDS: Finasteride 5 MG TABLET PO SCH (09:14)
[2022-02-18] MEDS: Simethicone 80 MG TAB.CHEW PO SCH ×3 (09:14→20:14)
[2022-02-18] MEDS: Carbidopa/Levodopa 25/100 TABLET PO SCH ×4 (10:20→20:14)
[2022-02-18] MEDS: Melatonin 3 MG TABLET PO SCH (20:14)
[2022-02-18] MEDS: Primidone 50 MG TABLET PO SCH (20:14)
[2022-02-19 03:00] VITALS: TEMP 97.5
[2022-02-19] MEDS: *HR* Heparin 5,000 UNIT/ML VIAL SQ SCH (06:09)
[2022-02-19] MEDS: Carbidopa/Levodopa 25/100 TABLET PO SCH ×2 (09:05→12:49)
[2022-02-19] MEDS: Pregabalin 75 MG CAPSULE PO SCH (09:05)
[2022-02-19] MEDS: allopurinoL 100 MG TABLET PO SCH (09:06)
[2022-02-19] MEDS: Aspirin Enteric Coated 81 MG Tablet PO SCH (09:06)
[2022-02-19] MEDS: Isosorbide MONOnitrate (24 HR) 30 MG TAB.ER.24H PO SCH (09:06)
[2022-02-19] MEDS: Simethicone 80 MG TAB.CHEW PO SCH (09:06)
[2022-02-19] MEDS: Finasteride 5 MG TABLET PO SCH (09:06)
[2022-02-19 10:40] VITALS: BP 127/71; PULSE 63; O2SAT 95
[2022-02-19 14:23] LABS: Influenza A PCR Negative (Negative); Influenza B PCR Negative (Negative); Resp. Syncytial Virus PCR Negative (Negative)
[2022-02-19 14:24] LABS: SARS-CoV-2 by PCR (In House) Negative (Negative)
== END 2022-02-19 16:04 | disposition home or self-care (01) ==
LOC: EMEROOARM 11:41 → 3BNU 11:41
PROVIDERS: ADMIT Internal Medicine; ATTEND Internal Medicine

== ENCOUNTER 2022-05-24 14:21 | Inpatient (IN) ==
[2022-05-24] MEDS ORDERED: Naloxone 0.4 MG/ML INJ IVP PRN (17:03)
[2022-05-24] MEDS ORDERED: 0.9 % Sodium Chloride 1,000 ML IVC SCH (17:15)
[2022-05-24] MEDS ORDERED: Acetaminophen 325 MG TABLET PO PRN (17:21)
[2022-05-24] MEDS ORDERED: Dextrose Gel 15 GM/37.5 ML TUBE PO PRN ×2 (17:51)
[2022-05-24] MEDS ORDERED: *HR* Dextrose 50 % in Water (Syg) 50 ML SYRINGE IVP PRN (17:51)
[2022-05-24] MEDS ORDERED: D5% in Water 1,000 ML IVC PRN (17:51)
[2022-05-24] MEDS: *HR* Heparin 5,000 UNIT/ML VIAL SQ SCH (23:14)
[2022-05-24] MEDS: Morphine Sulfate 2 MG/ML SYRINGE IVP PRN (23:19)
[2022-05-24] MEDS: Ondansetron 4 MG/2 ML VIAL IVP PRN (23:42)
[2022-05-25] MEDS: *HR* Heparin 5,000 UNIT/ML VIAL SQ SCH ×3 (05:44→22:30)
[2022-05-25 06:11] LABS: Basophils % 0.3 %; Eosinophils # 0.1 K/mcL (0.0-0.6); Eosinophils % 0.6 %; Hematocrit 39.2 % (37.5-50.1); Hemoglobin 12.5 g/dL (12.9-16.9); Immature Granulocytes % 0.4 % (0-4); Lymphocytes # 1.5 K/mcL (0.6-4.6); Lymphocytes % 19.4 %; Mean Corpuscular HGB Conc 31.9 g/dL (31.6-35.5); Mean Corpuscular Hemoglobin 29.1 pg (28.0-33.3); Mean Corpuscular Volume 91.4 fL (83.0-100.0); Monocytes # 0.7 K/mcL (0.0-1.3); Neutrophils # 5.5 K/mcL (1.6-8.9); Platelet Count 169 K/mcL (140-400); Red Blood Count 4.29 M/mcL (4.19-5.50); Segmented Neutrophils % 70.3 %; White Blood Count 7.8 K/mcL (4.3-11.1)
[2022-05-25 06:18] LABS: INR 1.2
[2022-05-25 06:21] LABS: Activated Partial Thrombo Time 31.6 Seconds (26.0-36.0)
[2022-05-25 06:32] LABS: Albumin 3.7 g/dL (3.5-5.7); Albumin/Globulin Ratio 1.2 (1.1-2.2); Bilirubin,Total 0.5 mg/dL (0.3-1.0); Calcium 8.1 mg/dL (8.6-10.3); Magnesium 1.7 mg/dL (1.6-2.6); Phosphorous 2.2 mg/dL (2.7-4.5); Potassium 4.2 mEq/L (3.5-5.1); Total Protein 6.7 g/dL (6.4-8.9)
[2022-05-25] MEDS: 0.9 % Sodium Chloride 1,000 ML IVC SCH ×2 (07:51→16:24)
[2022-05-25] MEDS: Ondansetron 4 MG/2 ML VIAL IVP PRN (12:57)
[2022-05-25] MEDS: Carbidopa/Levodopa 25/100 TABLET PO SCH ×2 (16:23→22:29)
[2022-05-25] MEDS ORDERED: Prochlorperazine 10 MG/2 ML VIAL IVP PRN (16:23)
[2022-05-25] MEDS ORDERED: Insulin LISPRO 300 UNITS/3 ML VIAL SUBQ SCH ×2 (18:00)
[2022-05-25] MEDS: Insulin LISPRO 300 UNITS/3 ML VIAL SUBQ SCH (22:26)
[2022-05-25] MEDS: Primidone 50 MG TABLET PO SCH (22:29)
[2022-05-26 03:32] LABS: Basophils % 0.2 %; Eosinophils % 0.5 %; Hematocrit 41.4 % (37.5-50.1); Hemoglobin 13.1 g/dL (12.9-16.9); Immature Granulocytes % 0.5 % (0-4); Lymphocytes # 1.4 K/mcL (0.6-4.6); Lymphocytes % 21.8 %; Mean Corpuscular HGB Conc 31.6 g/dL (31.6-35.5); Mean Corpuscular Volume 91.8 fL (83.0-100.0); Mean Platelet Volume 11.3 fL (9.4-12.4); Monocytes # 0.8 K/mcL (0.0-1.3); Monocytes % 11.8 %; Neutrophils # 4.2 K/mcL (1.6-8.9); Platelet Count 187 K/mcL (140-400); Red Blood Count 4.51 M/mcL (4.19-5.50); Red Cell Distribution Width 13.1 % (11.5-14.5); Segmented Neutrophils % 65.2 %; White Blood Count 6.4 K/mcL (4.3-11.1)
[2022-05-26 03:47] LABS: Potassium 3.4 mEq/L (3.5-5.1)
[2022-05-26 03:49] LABS: Magnesium 1.9 mg/dL (1.6-2.6); Phosphorous 2.1 mg/dL (2.7-4.5)
[2022-05-26] MEDS: *HR* Heparin 5,000 UNIT/ML VIAL SQ SCH ×2 (06:05→13:31)
[2022-05-26] MEDS: 0.9 % Sodium Chloride 1,000 ML IVC SCH (06:07)
[2022-05-26] MEDS: Insulin LISPRO 300 UNITS/3 ML VIAL SUBQ SCH ×4 (07:20→23:54)
[2022-05-26] MEDS ORDERED: Potassium Phosphate 44 MEQ in 0.9 % Sodium Chloride 250 ML IVPB ONE (08:43)
[2022-05-26] MEDS: Carbidopa/Levodopa 25/100 TABLET PO SCH ×4 (09:37→19:27)
[2022-05-26] MEDS: allopurinoL 100 MG TABLET PO SCH (09:37)
[2022-05-26] MEDS: Finasteride 5 MG TABLET PO SCH (09:37)
[2022-05-26] MEDS: Pregabalin 75 MG CAPSULE PO SCH ×2 (09:37→19:27)
[2022-05-26] MEDS: Aspirin Enteric Coated 81 MG Tablet PO SCH (09:37)
[2022-05-26 13:22] LABS: Adenovirus Not Detected (Not Detect); Coronavirus 229E Not Detected (Not Detect); Coronavirus HKU1 Not Detected (Not Detect)
[2022-05-26 13:23] LABS: Bordetella Pertussis Not Detected (Not Detect); Chlamydophila pneumoniae Not Detected (Not Detect); Coronavirus NL63 Not Detected (Not Detect); Coronavirus OC43 Not Detected (Not Detect); Human Metapneumovirus Not Detected (Not Detect); Human Rhinovirus/Enterovirus Not Detected (Not Detect); Influenza A Subtype 2009 H1 Not Detected (Not Detect); Influenza B Not Detected (Not Detect); Mycoplasma pneumoniae Not Detected (Not Detect); Parainfluenza Virus 1 Not Detected (Not Detect); Parainfluenza Virus 2 Not Detected (Not Detect); Parainfluenza Virus 3 Not Detected (Not Detect); Parainfluenza Virus 4 Not Detected (Not Detect); Respiratory Syncytial Virus Not Detected (Not Detect); SARS-CoV-2 Not Detected (Not Detect)
[2022-05-26] MEDS: Morphine Sulfate 2 MG/ML SYRINGE IVP PRN (13:31)
[2022-05-26] MEDS ORDERED: MOM Conc 10 ML UD.LIQ PO PRN (13:50)
[2022-05-26] MEDS ORDERED: Mag Hydrox/Al Hydrox/Simeth 30 ML UDC PO PRN (13:50)
[2022-05-26] MEDS ORDERED: Morphine Sulfate 2 MG/ML SYRINGE IVP PRN (15:04)
[2022-05-26] MEDS: Ketorolac 30 MG/ML VIAL IVP SCH (18:07)
[2022-05-26] MEDS: Primidone 50 MG TABLET PO SCH (19:27)
[2022-05-26] MEDS: Melatonin 3 MG TABLET PO SCH (19:27)
[2022-05-27] MEDS: Ketorolac 30 MG/ML VIAL IVP SCH ×2 (00:25→07:30)
[2022-05-27] MEDS: *HR* Heparin 5,000 UNIT/ML VIAL SQ SCH ×4 (01:57→21:58)
[2022-05-27] MEDS: 0.9 % Sodium Chloride 1,000 ML IVC SCH (02:33)
[2022-05-27] MEDS: Insulin LISPRO 300 UNITS/3 ML VIAL SUBQ SCH (06:25)
[2022-05-27] MEDS: Finasteride 5 MG TABLET PO SCH (08:23)
[2022-05-27] MEDS: Isosorbide MONOnitrate (24 HR) 30 MG TAB.ER.24H PO SCH (08:23)
[2022-05-27] MEDS: Carbidopa/Levodopa 25/100 TABLET PO SCH ×4 (08:23→21:58)
[2022-05-27] MEDS: allopurinoL 100 MG TABLET PO SCH (08:23)
[2022-05-27] MEDS: Pregabalin 75 MG CAPSULE PO SCH ×2 (08:23→21:58)
[2022-05-27] MEDS: Aspirin Enteric Coated 81 MG Tablet PO SCH (08:24)
[2022-05-27 09:16] LABS: Hematocrit 41.8 % (37.5-50.1); Hemoglobin 13.2 g/dL (12.9-16.9); Mean Corpuscular HGB Conc 31.6 g/dL (31.6-35.5); Mean Corpuscular Hemoglobin 29.1 pg (28.0-33.3); Mean Corpuscular Volume 92.1 fL (83.0-100.0); Platelet Count 193 K/mcL (140-400); Red Blood Count 4.54 M/mcL (4.19-5.50); Red Cell Distribution Width 13.2 % (11.5-14.5); White Blood Count 7.2 K/mcL (4.3-11.1)
[2022-05-27 11:33] LABS: Calcium 7.4 mg/dL (8.6-10.3); Magnesium 1.9 mg/dL (1.6-2.6); Potassium 5.4 mEq/L (3.5-5.1)
[2022-05-27] MEDS: Ondansetron 4 MG/2 ML VIAL IVP PRN (17:10)
[2022-05-27] MEDS: Melatonin 3 MG TABLET PO SCH (21:58)
[2022-05-27] MEDS: Primidone 50 MG TABLET PO SCH (21:58)
[2022-05-28 02:47] LABS: Basophils % 0.5 %; Eosinophils # 0.1 K/mcL (0.0-0.6); Eosinophils % 1.4 %; Hematocrit 36.2 % (37.5-50.1); Hemoglobin 11.7 g/dL (12.9-16.9); Immature Granulocytes % 0.4 % (0-4); Lymphocytes # 1.3 K/mcL (0.6-4.6); Lymphocytes % 17.2 %; Mean Corpuscular HGB Conc 32.3 g/dL (31.6-35.5); Mean Corpuscular Hemoglobin 29.5 pg (28.0-33.3); Mean Corpuscular Volume 91.4 fL (83.0-100.0); Mean Platelet Volume 10.8 fL (9.4-12.4); Monocytes # 0.7 K/mcL (0.0-1.3); Monocytes % 9.4 %; Neutrophils # 5.5 K/mcL (1.6-8.9); Platelet Count 184 K/mcL (140-400); Red Blood Count 3.96 M/mcL (4.19-5.50); Red Cell Distribution Width 13.2 % (11.5-14.5); Segmented Neutrophils % 71.1 %; White Blood Count 7.7 K/mcL (4.3-11.1)
[2022-05-28 03:28] LABS: Calcium 7.3 mg/dL (8.6-10.3); Magnesium 1.8 mg/dL (1.6-2.6); Potassium 3.4 mEq/L (3.5-5.1)
[2022-05-28 05:09] LABS: Calcium 7.7 mg/dL (8.6-10.3); Potassium 3.6 mEq/L (3.5-5.1)
[2022-05-28] MEDS: *HR* Heparin 5,000 UNIT/ML VIAL SQ SCH ×3 (05:46→21:55)
[2022-05-28] MEDS: Carbidopa/Levodopa 25/100 TABLET PO SCH ×4 (09:05→20:06)
[2022-05-28] MEDS: Pregabalin 75 MG CAPSULE PO SCH ×2 (09:05→20:06)
[2022-05-28] MEDS: Finasteride 5 MG TABLET PO SCH (09:05)
[2022-05-28] MEDS: Isosorbide MONOnitrate (24 HR) 30 MG TAB.ER.24H PO SCH (09:05)
[2022-05-28] MEDS: Aspirin Enteric Coated 81 MG Tablet PO SCH (09:05)
[2022-05-28] MEDS: allopurinoL 100 MG TABLET PO SCH (09:05)
[2022-05-28] MEDS: Ondansetron 4 MG/2 ML VIAL IVP PRN (11:57)
[2022-05-28] MEDS: 0.9 % Sodium Chloride 1,000 ML IVC SCH (15:06)
[2022-05-28] MEDS ORDERED: Prochlorperazine 10 MG/2 ML VIAL IVP PRN (15:07)
[2022-05-28] MEDS: Primidone 50 MG TABLET PO SCH (20:06)
[2022-05-28] MEDS: Melatonin 3 MG TABLET PO SCH (20:06)
[2022-05-28 23:20] LABS: Bilirubin,Urine Small (Negative); Blood,Urine Negative (Negative); Clarity,Urine Clear (Clear); Color,Urine Yellow (Yellow); Glucose,Urine (UA) Normal (Normal); Hyaline Casts,Urine Few per lpf (None Seen); Ketones,Urine 20 mg/dL (Negative); Leukocyte Esterase,Urine Negative (Negative); Mucus,Urine Few per lpf (None-Few); Nitrite,Urine Negative (Negative); Protein,Urine >=300 mg/dL (Neg-Trace); Specific Gravity,Urine 1.028 (1.010-1.025); Squamous Epithelial Cell,Urine Few per hpf (None-Few); Urobilinogen,Urine Normal (Normal); WBC,Urine 0-3 per hpf (0-3)
[2022-05-29 02:19] LABS: Basophils % 0.4 %; Eosinophils % 0.1 %; Hematocrit 38.1 % (37.5-50.1); Hemoglobin 12.3 g/dL (12.9-16.9); Immature Granulocytes % 0.5 % (0-4); Lymphocytes # 1.7 K/mcL (0.6-4.6); Lymphocytes % 21.3 %; Mean Corpuscular HGB Conc 32.3 g/dL (31.6-35.5); Mean Corpuscular Hemoglobin 29.8 pg (28.0-33.3); Mean Corpuscular Volume 92.3 fL (83.0-100.0); Mean Platelet Volume 10.7 fL (9.4-12.4); Monocytes # 0.7 K/mcL (0.0-1.3); Monocytes % 8.4 %; Neutrophils # 5.5 K/mcL (1.6-8.9); Platelet Count 209 K/mcL (140-400); Red Blood Count 4.13 M/mcL (4.19-5.50); Red Cell Distribution Width 13.4 % (11.5-14.5); Segmented Neutrophils % 69.3 %; White Blood Count 7.9 K/mcL (4.3-11.1)
[2022-05-29 02:40] LABS: Magnesium 1.9 mg/dL (1.6-2.6); Phosphorous 2.2 mg/dL (2.7-4.5)
[2022-05-29 02:41] LABS: Calcium 7.8 mg/dL (8.6-10.3); Potassium 3.8 mEq/L (3.5-5.1)
[2022-05-29] MEDS ORDERED: 0.9 % Sodium Chloride 1,000 ML IV.SOLN IV ONE (04:16)
[2022-05-29] MEDS: 0.9 % Sodium Chloride 1,000 ML IVC SCH ×3 (04:18→17:26)
[2022-05-29] MEDS: *HR* Heparin 5,000 UNIT/ML VIAL SQ SCH ×3 (05:42→20:43)
[2022-05-29] MEDS ORDERED: Potassium Phosphate 44 MEQ in 0.9 % Sodium Chloride 250 ML IVPB ONE (07:05)
[2022-05-29] MEDS: Isosorbide MONOnitrate (24 HR) 30 MG TAB.ER.24H PO SCH (08:13)
[2022-05-29] MEDS: Carbidopa/Levodopa 25/100 TABLET PO SCH ×4 (08:13→20:43)
[2022-05-29] MEDS: Finasteride 5 MG TABLET PO SCH (08:13)
[2022-05-29] MEDS: Pregabalin 75 MG CAPSULE PO SCH ×2 (08:13→20:42)
[2022-05-29] MEDS: Aspirin Enteric Coated 81 MG Tablet PO SCH (08:13)
[2022-05-29] MEDS: allopurinoL 100 MG TABLET PO SCH (08:13)
[2022-05-29 12:16] LABS: Estimated Average Glucose 126 mg/dl
[2022-05-29] MEDS: Primidone 50 MG TABLET PO SCH (20:42)
[2022-05-29] MEDS: Melatonin 3 MG TABLET PO SCH (20:42)
[2022-05-30 03:26] LABS: Basophils % 0.5 %; Eosinophils # 0.1 K/mcL (0.0-0.6); Eosinophils % 1.3 %; Hematocrit 36.3 % (37.5-50.1); Hemoglobin 11.5 g/dL (12.9-16.9); Immature Granulocytes % 0.3 % (0-4); Lymphocytes # 1.8 K/mcL (0.6-4.6); Lymphocytes % 23.8 %; Mean Corpuscular HGB Conc 31.7 g/dL (31.6-35.5); Mean Corpuscular Hemoglobin 29.6 pg (28.0-33.3); Mean Corpuscular Volume 93.6 fL (83.0-100.0); Mean Platelet Volume 10.7 fL (9.4-12.4); Monocytes # 0.7 K/mcL (0.0-1.3); Monocytes % 9.4 %; Neutrophils # 4.8 K/mcL (1.6-8.9); Platelet Count 179 K/mcL (140-400); Red Blood Count 3.88 M/mcL (4.19-5.50); Red Cell Distribution Width 13.4 % (11.5-14.5); Segmented Neutrophils % 64.7 %; White Blood Count 7.5 K/mcL (4.3-11.1)
[2022-05-30 03:47] LABS: Calcium 6.8 mg/dL (8.6-10.3); Magnesium 1.6 mg/dL (1.6-2.6); Phosphorous 1.7 mg/dL (2.7-4.5); Potassium 3.9 mEq/L (3.5-5.1)
[2022-05-30] MEDS: *HR* Heparin 5,000 UNIT/ML VIAL SQ SCH ×3 (05:49→20:55)
[2022-05-30] MEDS: 0.9 % Sodium Chloride 1,000 ML IVC SCH ×2 (07:03→17:00)
[2022-05-30] MEDS: Calcium Gluconate 1gm/50mL 1 GM/50 ML BAG IVPB SCH ×2 (07:43→09:26)
[2022-05-30] MEDS: Carbidopa/Levodopa 25/100 TABLET PO SCH ×4 (09:26→20:55)
[2022-05-30] MEDS: Finasteride 5 MG TABLET PO SCH (09:26)
[2022-05-30] MEDS: Isosorbide MONOnitrate (24 HR) 30 MG TAB.ER.24H PO SCH (09:26)
[2022-05-30] MEDS: Pregabalin 75 MG CAPSULE PO SCH ×2 (09:26→20:54)
[2022-05-30] MEDS: Aspirin Enteric Coated 81 MG Tablet PO SCH (09:26)
[2022-05-30] MEDS: allopurinoL 100 MG TABLET PO SCH (09:27)
[2022-05-30] MEDS: Primidone 50 MG TABLET PO SCH (20:55)
[2022-05-30] MEDS: Melatonin 3 MG TABLET PO SCH (20:55)
[2022-05-31 03:13] LABS: Basophils % 0.6 %; Eosinophils # 0.1 K/mcL (0.0-0.6); Eosinophils % 1.1 %; Hematocrit 37.9 % (37.5-50.1); Hemoglobin 12.1 g/dL (12.9-16.9); Immature Granulocytes % 0.5 % (0-4); Lymphocytes # 1.3 K/mcL (0.6-4.6); Lymphocytes % 21.1 %; Mean Corpuscular HGB Conc 31.9 g/dL (31.6-35.5); Mean Corpuscular Hemoglobin 29.2 pg (28.0-33.3); Mean Corpuscular Volume 91.3 fL (83.0-100.0); Mean Platelet Volume 10.5 fL (9.4-12.4); Monocytes # 0.6 K/mcL (0.0-1.3); Monocytes % 9.1 %; Neutrophils # 4.2 K/mcL (1.6-8.9); Platelet Count 176 K/mcL (140-400); Red Blood Count 4.15 M/mcL (4.19-5.50); Red Cell Distribution Width 13.1 % (11.5-14.5); Segmented Neutrophils % 67.6 %; White Blood Count 6.3 K/mcL (4.3-11.1)
[2022-05-31] MEDS: Nitroglycerin 0.4 MG TAB.SUBL SL PRN ×3 (03:17→03:27)
[2022-05-31] MEDS: 0.9 % Sodium Chloride 1,000 ML IVC SCH ×3 (03:19→22:12)
[2022-05-31 03:33] LABS: Calcium 7.7 mg/dL (8.6-10.3); Magnesium 1.5 mg/dL (1.6-2.6); Phosphorous 1.6 mg/dL (2.7-4.5); Potassium 3.8 mEq/L (3.5-5.1)
[2022-05-31] MEDS: *HR* Heparin 5,000 UNIT/ML VIAL SQ SCH ×3 (05:39→21:53)
[2022-05-31] MEDS: Aspirin Enteric Coated 81 MG Tablet PO SCH (08:36)
[2022-05-31] MEDS: Pregabalin 75 MG CAPSULE PO SCH ×2 (08:36→20:07)
[2022-05-31] MEDS: Carbidopa/Levodopa 25/100 TABLET PO SCH ×4 (08:36→20:11)
[2022-05-31] MEDS: allopurinoL 100 MG TABLET PO SCH (08:37)
[2022-05-31] MEDS: Isosorbide MONOnitrate (24 HR) 30 MG TAB.ER.24H PO SCH (08:37)
[2022-05-31] MEDS: Finasteride 5 MG TABLET PO SCH (08:37)
[2022-05-31] MEDS: Primidone 50 MG TABLET PO SCH (20:07)
[2022-05-31] MEDS: Melatonin 3 MG TABLET PO SCH (20:07)
[2022-05-31] MEDS ORDERED: *HR* LORazepam 2 MG/ML VIAL IM STA (23:49)
[2022-06-01 04:46] LABS: Basophils % 0.6 %; Eosinophils % 0.6 %; Hematocrit 36.9 % (37.5-50.1); Hemoglobin 12.2 g/dL (12.9-16.9); Immature Granulocytes % 0.6 % (0-4); Lymphocytes # 1.2 K/mcL (0.6-4.6); Lymphocytes % 21.5 %; Mean Corpuscular HGB Conc 33.1 g/dL (31.6-35.5); Mean Corpuscular Hemoglobin 29.8 pg (28.0-33.3); Mean Platelet Volume 10.7 fL (9.4-12.4); Monocytes # 0.6 K/mcL (0.0-1.3); Monocytes % 10.5 %; Neutrophils # 3.6 K/mcL (1.6-8.9); Platelet Count 169 K/mcL (140-400); Red Cell Distribution Width 13.2 % (11.5-14.5); Segmented Neutrophils % 66.2 %; White Blood Count 5.4 K/mcL (4.3-11.1)
[2022-06-01 05:06] LABS: Calcium 8.2 mg/dL (8.6-10.3); Magnesium 1.7 mg/dL (1.6-2.6); Phosphorous 1.8 mg/dL (2.7-4.5); Potassium 3.8 mEq/L (3.5-5.1)
[2022-06-01] MEDS: *HR* Heparin 5,000 UNIT/ML VIAL SQ SCH (05:42)
[2022-06-01] MEDS: Finasteride 5 MG TABLET PO SCH (10:12)
[2022-06-01] MEDS: Isosorbide MONOnitrate (24 HR) 30 MG TAB.ER.24H PO SCH (10:13)
[2022-06-01] MEDS: allopurinoL 100 MG TABLET PO SCH (10:13)
[2022-06-01] MEDS: Carbidopa/Levodopa 25/100 TABLET PO SCH (10:13)
[2022-06-01] MEDS: Pregabalin 75 MG CAPSULE PO SCH (10:13)
[2022-06-01] MEDS: Aspirin Enteric Coated 81 MG Tablet PO SCH (10:13)
[2022-06-01 10:43] VITALS: BP 136/79; PULSE 78; TEMP 97.8; O2SAT 95
[2022-06-01] MEDS ORDERED: Simethicone 80 MG TAB.CHEW PO PRN (11:12)
[2022-06-01 13:11] LABS: Influenza A PCR Negative (Negative); Influenza B PCR Negative (Negative); Resp. Syncytial Virus PCR Negative (Negative)
[2022-06-01 13:30] LABS: SARS-CoV-2 by PCR (In House) Negative (Negative)
[2022-06-01] MEDS ORDERED: carvediloL 6.25 MG TABLET PO SCH (17:00)
== END 2022-06-01 13:18 | DRG 683 ==
LOC: 3ANU 14:21 → EMEROOARM 14:21 → SUATTDRO 15:58 → 3ANU 17:37 → SUATTDRO 05-27 14:12
PROVIDERS: ADMIT Internal Medicine; ATTEND Pharmacist

== ENCOUNTER 2022-06-21 15:15 | Observation (INO) ==
[2022-06-21] MEDS ORDERED: Iopamidol - 370 500 ML MLS IVP ONE ×2 (15:48→16:00)
[2022-06-21] MEDS ORDERED: Carbidopa/Levodopa 25/100 TABLET PO ONE (16:30)
[2022-06-21 17:27] LABS: Basophils # 0.1 K/mcL (0.0-0.2); Basophils % 0.7 %; Eosinophils # 0.1 K/mcL (0.0-0.6); Eosinophils % 1.3 %; Hematocrit 38.2 % (37.5-50.1); Hemoglobin 12.1 g/dL (12.9-16.9); Immature Granulocytes % 0.4 % (0-4); Lymphocytes # 1.7 K/mcL (0.6-4.6); Lymphocytes % 21.5 %; Mean Corpuscular HGB Conc 31.7 g/dL (31.6-35.5); Mean Corpuscular Hemoglobin 29.7 pg (28.0-33.3); Mean Corpuscular Volume 93.6 fL (83.0-100.0); Mean Platelet Volume 10.5 fL (9.4-12.4); Monocytes # 0.6 K/mcL (0.0-1.3); Monocytes % 7.8 %; Neutrophils # 5.2 K/mcL (1.6-8.9); Platelet Count 182 K/mcL (140-400); Red Blood Count 4.08 M/mcL (4.19-5.50); Red Cell Distribution Width 13.5 % (11.5-14.5); Segmented Neutrophils % 68.3 %; White Blood Count 7.7 K/mcL (4.3-11.1)
[2022-06-21 17:47] LABS: Alanine Aminotransferase 12 Units/L (7-52); Albumin 3.9 g/dL (3.5-5.7); Albumin/Globulin Ratio 1.3 (1.1-2.2); Alkaline Phosphatase 60 Units/L (34-104); Aspartate Amino Transferase 21 Units/L (13-39); BUN/Creatinine Ratio 20 (6-26); Bilirubin,Direct 0.1 mg/dL (0.0-0.2); Bilirubin,Indirect 0.3 mg/dL (0.0-1.0); Bilirubin,Total 0.4 mg/dL (0.3-1.0); Blood Urea Nitrogen 19 mg/dL (8-23); Calcium 9.1 mg/dL (8.6-10.3); Carbon Dioxide 25 mEq/L (23-29); Chloride 104 mEq/L (98-107); Globulin 2.9 g/dL (2.4-3.5); Glucose 110 mg/dL (70-105); Lipase 41 Units/L (11-82); Magnesium 1.6 mg/dL (1.6-2.6); Osmolality,Calculated 287 (280-300); Potassium 4.4 mEq/L (3.5-5.1); Sodium 137 mEq/L (136-145); Total Protein 6.8 g/dL (6.4-8.9); Troponin I < 0.03 ng/mL (< 0.04)
[2022-06-21 20:33] LABS: Bilirubin,Urine Negative (Negative); Blood,Urine Moderate (Negative); Clarity,Urine Clear (Clear); Color,Urine Colorless (Yellow); Glucose,Urine (UA) Normal (Normal); Ketones,Urine Negative (Negative); Leukocyte Esterase,Urine Negative (Negative); Mucus,Urine Few per lpf (None-Few); Nitrite,Urine Negative (Negative); PH,Urine 7.5 pH Units (5.0-8.0); Protein,Urine Trace mg/dL (Neg-Trace); RBC,Urine TNTC per hpf (0-3); Specific Gravity,Urine > 1.030 (1.010-1.025); Urobilinogen,Urine Normal (Normal); WBC,Urine 0-3 per hpf (0-3)
[2022-06-21] MEDS ORDERED: Naloxone 0.4 MG/ML INJ IVP PRN (22:11)
[2022-06-21] MEDS ORDERED: Ondansetron ODT 4 MG TAB.RAPDIS SL PRN (22:11)
[2022-06-21] MEDS ORDERED: Acetaminophen 325 MG TABLET PO PRN (22:11)
[2022-06-21] MEDS ORDERED: Melatonin 3 MG TABLET PO PRN (22:11)
[2022-06-21] MEDS ORDERED: 0.9 % Sodium Chloride 1,000 ML IVC SCH (22:15)
[2022-06-22 05:10] LABS: Hematocrit 39.4 % (37.5-50.1); Hemoglobin 12.8 g/dL (12.9-16.9); Mean Corpuscular HGB Conc 32.5 g/dL (31.6-35.5); Mean Corpuscular Hemoglobin 29.4 pg (28.0-33.3); Mean Corpuscular Volume 90.6 fL (83.0-100.0); Mean Platelet Volume 10.5 fL (9.4-12.4); Platelet Count 202 K/mcL (140-400); Red Blood Count 4.35 M/mcL (4.19-5.50); Red Cell Distribution Width 13.2 % (11.5-14.5); White Blood Count 8.2 K/mcL (4.3-11.1)
[2022-06-22 05:29] LABS: Calcium 9.2 mg/dL (8.6-10.3); Magnesium 1.6 mg/dL (1.6-2.6); Phosphorous 2.6 mg/dL (2.7-4.5); Potassium 4.2 mEq/L (3.5-5.1)
[2022-06-22] MEDS: Finasteride 5 MG TABLET PO SCH (08:49)
[2022-06-22] MEDS: Carbidopa/Levodopa 25/100 TABLET PO SCH ×4 (08:49→22:04)
[2022-06-22] MEDS: carvediloL 6.25 MG TABLET PO SCH ×2 (08:49→16:49)
[2022-06-22] MEDS: Simethicone 80 MG TAB.CHEW PO SCH (08:49)
[2022-06-22] MEDS ORDERED: MOM Conc 10 ML UD.LIQ PO PRN (17:41)
[2022-06-22] MEDS ORDERED: DOCUSATE SODIUM 283 MG/5 ML RC PRN (17:41)
[2022-06-22] MEDS ORDERED: MICONAZOLE NITRATE 85 GM TP PRN (17:41)
[2022-06-22] MEDS ORDERED: Primidone 50 MG TABLET PO SCH (21:00)
[2022-06-22] MEDS ORDERED: Melatonin 3 MG TABLET PO SCH (21:00)
[2022-06-22] MEDS: Pregabalin 75 MG CAPSULE PO SCH (22:02)
[2022-06-22] MEDS: Sennosides/Docusate Sodium TABLET PO SCH (22:03)
[2022-06-23] MEDS ORDERED: Isosorbide MONOnitrate (24 HR) 30 MG TAB.ER.24H PO SCH (09:00)
[2022-06-23] MEDS ORDERED: allopurinoL 100 MG TABLET PO SCH (09:00)
[2022-06-23] MEDS ORDERED: Aspirin Enteric Coated 81 MG Tablet PO SCH (09:00)
[2022-06-23] MEDS ORDERED: Fluticasone Propionate Nasal 50 MCG/SPRAY BOTTLE NS SCH (09:00)
[2022-06-23] MEDS ORDERED: polyethylene glycoL 3350 17 GM POWD.PACK PO SCH (09:00)
[2022-06-23] MEDS: Carbidopa/Levodopa 25/100 TABLET PO SCH (10:02)
[2022-06-23] MEDS: Pregabalin 75 MG CAPSULE PO SCH (10:02)
[2022-06-23] MEDS: Simethicone 80 MG TAB.CHEW PO SCH (10:02)
[2022-06-23] MEDS: Sennosides/Docusate Sodium TABLET PO SCH (10:02)
[2022-06-23] MEDS: Finasteride 5 MG TABLET PO SCH (10:02)
[2022-06-23] MEDS: carvediloL 6.25 MG TABLET PO SCH (10:03)
[2022-06-23 10:58] LABS: Influenza A PCR Negative (Negative); Influenza B PCR Negative (Negative); Resp. Syncytial Virus PCR Negative (Negative)
[2022-06-23 10:59] VITALS: BP 96/58; PULSE 61; TEMP 97.6; O2SAT 94
[2022-06-23 11:28] LABS: SARS-CoV-2 by PCR (In House) Negative (Negative)
== END 2022-06-23 11:57 ==
LOC: 3ANU 15:15 → EMEROOARM 15:15 → SUATTDRO 22:00 → 3ANU 23:12
PROVIDERS: ADMIT Internal Medicine; ATTEND Internal Medicine